=== PATIENT | female | born 1935 | race Caucasian/White ===

== ENCOUNTER 2023-04-25 14:29 | Observation (INO) | payer MEDICARE, SELFPAY ==
[2023-04-25] VITALS (11 sets, daily range): BP systolic 119–137; BP diastolic 63–88; PULSE 65–94; RESP 18–20; TEMP 37.2; O2SAT 93–97; BMI 33.8
--- NOTE | 2023-04-25 15:16 | ED_ITS ---
HPI - Abdominal Pain General Time Seen by Provider: 15:16 Date Seen: 04/25/23 Chief Complaint: Abdominal Pain Stated Complaint: Vomiting Headache Diarrhea body Pain Time Seen by Provider: 04/25/23 14:50 Source: patient and RN notes reviewed Mode of arrival: ambulatory Limitations: no limitations History of Present Illness HPI narrative: Patient is an 87-year-old female coming in accompanied by her daughter with nausea vomiting and diarrhea. She states she cannot keep anything in. Her daughter feels she started with symptoms Sunday night but patient feels it was more Sunday. She thought initially that it was maybe a tuna salad that she made, started having nausea vomiting with that. She has had ongoing nausea vomiting and has developed diarrhea. It sounds as if it is nonbloody. She does have some abdominal pain, has not noted any fevers. She states she cannot keep anything in. She has had a history of C difficile before, was severely hypokalemic reportedly with this. There is no recent travel, no known ill contacts. Related Data Patient : No Home Medications Medication Instructions Recorded Confirmed fluorouracil 5 % topical cream g topical 06/27/22 06/27/22 irbesartan 150 1 tab PO 06/27/22 06/27/22 mg-hydrochlorothiazide 12.5 mg tablet simvastatin 20 mg tablet 20 mg PO 06/27/22 06/27/22 Previous Rx's Medication Instructions Recorded glimepiride 4 mg tablet 4 mg PO BID #60 tabs 07/11/22 Allergies Allergy/AdvReac Type Severity Reaction Status Date / Time ciprofloxacin Allergy Severe torn tendon Verified 06/27/22 18:01 oxycodone Allergy Mild 10mg itches Verified 06/27/22 18:01 tetracycline Allergy Mild swollen Verified 06/27/22 18:01 feet metformin AdvReac Mild GI upset Verified 06/27/22 18:01 Review of Systems Status of ROS Reports: 6 or more systems reviewed and unremarkable except as noted in History and below [facility] Medical History (Updated 04/25/23 @ 20:15 by Dolores Blankenship MD) Atrophic vulvovaginitis ?N95.2 - Postmenopausal atrophic vaginitis (ICD-10) Tension headache ?G44.209 - Tension-type headache, unspecified, not intractable (ICD-10) Hypokalemia ?E87.6 - Hypokalemia (ICD-10) History of hypothyroidism ?Z86.39 - Personal history of other endocrine, nutritional and metabolic disease (ICD-10) History of herpes zoster ?Z86.19 - Personal history of other infectious and parasitic diseases (ICD- 10) History of Clostridium difficile colitis ?Z86.19 - Personal history of other infectious and parasitic diseases (ICD- 10) History of benign breast biopsy ?Z98.890 - Other specified postprocedural states (ICD-10) Hammertoe ?M20.40 - Other hammer toe(s) (acquired), unspecified foot (ICD-10) Surgical History (Updated 06/12/22 @ 12:40 by Artur Hollis) Status post cataract extraction ?Z98.49 - Cataract extraction status, unspecified eye (ICD-10) History of ventral hernia repair ?Z98.890 - Other specified postprocedural states (ICD-10) ?Z87.19 - Personal history of other diseases of the digestive system (ICD-10) History of total shoulder replacement ?Z96.619 - Presence of unspecified artificial shoulder joint (ICD-10) History of total hip replacement ?Z96.649 - Presence of unspecified artificial hip joint (ICD-10) History of tonsillectomy ?Z90.89 - Acquired absence of other organs (ICD-10) History of hysterectomy ?Z90.710 - Acquired absence of both cervix and uterus (ICD-10) History of bunionectomy of both great toes ?Z98.890 - Other specified postprocedural states (ICD-10) Family History Son Cerebral hemorrhage Social History (Updated 06/12/22 @ 12:42 by Artur Hollis) Narrative: health care directive on file- health care directive completed on 06/02/2020, reviewed and sent for scanning on 08/19/2020. has 4 children non-smoker Smoking Status: Never smoker Exam Const: Vital Signs, click to edit/add: Vital Signs - 24 hr 04/25/23 15:05 04/25/23 15:56 04/25/23 15:56 Pulse Rate Pulse Rate [Pulse Oximeter] 94 87 Respiratory Rate 20 20 Blood Pressure [Le ft Upper Arm] 119/68 126/63 Pulse Oximetry 95 93 94 Oxygen Delivery Me thod Room Air Room Air 04/25/23 17:46 04/25/23 19:19 04/25/23 19:30 Pulse Rate 68 65 Pulse Rate [Pulse Oximeter] 68 Respiratory Rate 20 Blood Pressure [Le ft Upper Arm] 122/73 Pulse Oximetry 97 95 95 Oxygen Delivery Me thod Room Air 04/25/23 19:45 04/25/23 20:00 Pulse Rate 68 65 Pulse Rate [Pulse Oximeter] Respiratory Rate Blood Pressure [Le ft Upper Arm] Pulse Oximetry 93 95 Oxygen Delivery Me thod Documenting provider has reviewed patient's vital signs: yes Common normals: no apparent distress, oriented x3, no limitations, healthy appearing, alert and well nourished General appearance: cooperative, comfortable, well kempt and well developed Nutritional appearance: overweight HENMT: Common normals: normocephalic, head/scalp atraumatic, hearing grossly normal bilaterally, external ears normal, external nose normal, moist oral mucous membranes and oropharynx normal Head and scalp: normocephalic and atraumatic Nose: external nose normal External ear: external ears normal Eye: Common normals: PERRL, EOMs intact bilaterally, conjunctivae normal and no scleral icterus Conjunctiva: conjunctiva(e) normal Pupil: PERRL Neck & C-Spine: Common normals: full ROM, no lymphadenopathy, supple, no meningeal signs, no JVD and thyroid normal Thyroid: thyroid normal Resp: Common normals: normal respiratory effort, no retractions, no use of accessory muscles and clear to auscultation bilaterally Auscultation: clear to auscultation bilaterally Cardio: Common normals: no JVD, regular rate, regular rhythm, S1 normal heart sound, S2 normal heart sound, no gallops, no clicks, no murmurs and no rub Rate: regular rate Rhythm: regular rhythm Heart sounds: S1 normal and S2 normal GI: Common normals: Normal to inspection, nondistended, normoactive bowel sounds present, soft to palpation, non-tender, no hepatosplenomegaly and no masses Palpation: soft and no hepatosplenomegaly Neuro: Common normals: oriented x3 Sensorium/orientation: alert Meningeal signs: no meningeal signs Psych: Appearance: well kempt Course Course Hospital Course: Patient has a history of C difficile colitis, current presentation is very concerning for potential recurrence. This also could be a gastroenteritis. Feel that we can start with labs, check stool for C difficile which is already been collected. Will initiate IV fluids, have reviewed with her that we will be checking her potassium. The nausea vomiting diarrhea certainly can cause hypokalemia which she has noted in the past with these symptoms. Will likely just start with a flat and upright to look at character of her bowels, do not feel she needs CT imaging at this time. Reevaluation(s) Time of Reevaluation #1: 18:09 Reevaluation #1: Patient is resting comfortably. Reviewed with her that I do think we should proceed with CT imaging of her abdomen. Her C reactive protein is 18, elevated white blood count. Her C difficile has come back negative. Thus, do think we need advanced imaging here. Time of Reevaluation #2: 20:12 Reevaluation #2: Have reviewed with patient and her daughter the diverticulitis diagnosis. Recommendation for hospitalization is made. Kaia did not initially want to come into the hospital but after I have reviewed the rationale and her daughter has insisted, she does agree. Consultations Consultation #1: Have reviewed with hospitalist Dr. Blankenship regarding this patient. She is requesting ertapenem in case she might transition to outpatient IV antibiotics. 1 g of this was subsequently ordered. Given her age, nausea vomiting with this, multifocal diverticulitis, will place in hospital for observation. Time: 19:49 Vital Signs Vital signs: Initial Vital Signs Temperature Source Temporal Artery Scan 04/25/23 15:05 Pulse Rate 94 04/25/23 15:05 Pulse Rhythm Regular 04/25/23 15:05 Respiratory Rate 20 04/25/23 15:05 Blood Pressure 119/68 04/25/23 15:05 Blood Pressure Mean 85 04/25/23 15:05 Blood Pressure Position Sitting 04/25/23 15:05 Pulse Oximetry 95 04/25/23 15:05 Oxygen Delivery Method Room Air 04/25/23 15:05 Vital Signs Pulse Rate 94 04/25/23 15:05 Respiratory Rate 20 04/25/23 15:05 Blood Pressure 119/68 04/25/23 15:05 Pulse Oximetry 95 04/25/23 15:05 Oxygen Delivery Method Room Air 04/25/23 15:05 Pulse Rate 65 04/25/23 20:00 Respiratory Rate 20 04/25/23 17:46 Blood Pressure 122/73 04/25/23 17:46 Pulse Oximetry 95 04/25/23 20:00 Oxygen Delivery Method Room Air 04/25/23 17:46 MDM - Abdominal Pain Differential Diagnosis Differential diagnosis: Likely abdominal pain, diverticulitis and gastroenteritis Lab Data Attestation: I reviewed the patient's lab results. Labs: Lab Results 04/25/23 Range/Units 15:50 WBC 13.63 H (4.50-11.00) K/uL RBC 4.89 (4.00-5.20) m/uL Hgb 14.8 (12.0-16.0) gm/dL Hct 43.7 (33.0-51.0) % MCV 89 (80-100) fL MCH 30 (26-34) pg MCHC 34 (32-36) gm/dL RDW Coeff of [place] 13.8 (11.5-15.5) % Plt Count 230 (140-440) K/uL Neut % (Auto) 78.1 H (42.0-72.0) % Lymph % (Auto) 12.5 L (20-44) % [place] % (Auto) 8.8 (0.0-11.0) % Eos % (Auto) 0.3 (0.0-7.0) % Baso % (Auto) 0.2 (0.0-3.0) % Neut # (Auto) 10.60 H (1.7-7.0) K/uL Lymph # (Auto) 1.70 (0.90-2.90) K/uL [place] # (Auto) 1.20 H (0.00-0.90) K/UL Eos # (Auto) 0.00 (0.00-0.50) K/uL Baso # (Auto) 0.00 (0.00-0.30) K/uL Sodium 136 (135-149) mmol/L Potassium 3.0 L (3.6-5.1) mmol/L Chloride 99 (96-114) mmol/L Carbon Dioxide 26 (20-32) mmol/L BUN 19 (7-30) mg/dL Creatinine 0.6 (0.5-1.5) mg/dL Estimated Creat Clear 31.94 Estimated GFR 87 ml/min Glucose 142 H (60-115) mg/dL Lactate 1.3 (0.5-1.9) mmol/L Calcium 8.9 (8.4-10.6) mg/dL Total Bilirubin 1.3 (0.1-1.5) mg/dL AST 22 (12-35) U/L ALT 21 (4-35) U/L Alkaline Phosphatase 59 (40-150) U/L C-Reactive Protein 18.1 H (0.5-1.0) mg/dL Total Protein 7.1 (6.0-8.3) g/dL Albumin 4.1 (3.3-5.0) g/dL Imaging Data Abdominal x-ray: Attestation: I have reviewed the pertinent imaging results. Radiologist's impression: Patient: KAIA LUGO Facility:?[facility] Patient ID:?[id number] Site Patient ID:?[id number]. Site :?[id number] Study:?XRay Abdomen 2 VIEW-04/25/2023 5:12:53 PM Ordering Physician:Karen Alston Final Report: INDICATION: Nausea, vomiting, diarrhea for 1 day. COMPARISON: None available. FINDINGS: Erect and supine films of the abdomen were obtained. In the abdomen, there is no sign of distention of the small bowel or colon to suggest obstruction or ileus. There is no sign of free air or distinct mass. The components of bilateral total hip prostheses are in anatomic alignment with no sign of fracture, loosening, or dislocation. There is no sign of fracture of the [place] osseous structures. There is mild scoliosis of the lumbar spine convex towards the left. There is prominent disc degenerative disease in the knee inferior lumbar spine. The lung bases are clear. IMPRESSION: Normal abdomen two views. Dictated by Manolo Heart MD @ 04/25/2023 6:05:50 PM (Electronic Signature) CT scan - abdomen: Attestation: I have reviewed the pertinent imaging results. Radiologist's impression: Patient: KAIA LUGO Facility:?[facility] Patient ID:?[id number] Site Patient ID:?[id number]. Site :?[id number] Study:?CT Abdomen/Pelvis W/ISOVUE 370 91CC-04/25/2023 6:34:53 PM Ordering Physician:?Darius Alston Final Report: INDICATION: n/v/d, elevated wbc, crp 18, abd pain X 1 DAY TECHNIQUE: CT abdomen and pelvis acquired with 91 cc Isovue 370 IV contrast. COMPARISON: None. FINDINGS: Lower chest: The visualized lower lungs are aerated. No pleural or pericardial effusion. ABDOMEN: Liver: Subcentimeter hypodensities are too small to characterize however statistically represent cysts. Gallbladder and biliary: Gallbladder wall calcification versus cholelithiasis in an otherwise normal gallbladder. Normal caliber bile ducts. Spleen: Normal size and enhancement. Pancreas: Normal enhancement without peripancreatic inflammatory changes or ductal dilatation. Adrenal glands: Normal adrenal glands. Kidneys and ureters: Normal enhancement. No radio-opaque calculi. No hydroureteronephrosis. Subcentimeter hypodensities are too small to characterize however statistically represent cysts. Peripelvic cysts. Early passage of contrast in the renal collecting systems. GI tract: The stomach is relatively decompressed. Normal caliber small and large bowel loops. Appendix is not definitively visualized. Colonic diverticulosis with areas of adjacent inflammatory stranding in the sigmoid as well as the descending colon. Vascular structures: Patent abdominal aorta with atherosclerotic vascular calcifications. Lymph nodes: No lymphadenopathy in the abdomen or pelvis by size criteria. Peritoneum: No free air, free fluid, or focal drainable fluid collection. PELVIS: Genitourinary system: Urinary bladder is relatively obscured by streak artifact. SKELETAL STRUCTURES AND SOFT TISSUES: Bilateral hip arthroplasties. Lumbar spondylosis. IMPRESSION: Acute multifocal uncomplicated diverticulitis involving the sigmoid and descending colon. Please note that all CT scans at this facility use dose modulation, iterative reconstruction, and/or weight-based dosing when appropriate to reduce radiation dose to as low as reasonably achievable. Dictated by Erick Vital MD @ 04/25/2023 7:38:38 PM (Electronic Signature) Discharge Plan Discharge Clinical Impression: Diverticulitis, Acute hypokalemia Patient Disposition: Admitted As Inpatient Condition: Unchanged
[2023-04-25] MEDS: 0.9 % SODIUM CHLORIDE 500 ML 500 ML IV (15:46)
[2023-04-25] MEDS: ONDANSETRON 2 MG/ML inj 4 MG IVP (15:46)
[2023-04-25 15:55] LABS: Lactate* 1.3 mmol/L (0.5-1.9)
[2023-04-25 15:59] LABS: Basophils Percent Auto 0.2 % (0.0-3.0); Eosinophils Percent Auto 0.3 % (0.0-7.0); Hematocrit 43.7 % (33.0-51.0); Hemoglobin* 14.8 gm/dL (12.0-16.0); Immature Granulocytes Pct Auto 0.1 %; Lymphocytes Percent Auto 12.5 % (20-44); Mean Corpuscular HGB Conc 34 gm/dL (32-36); Mean Corpuscular Hemoglobin 30 pg (26-34); Mean Corpuscular Volume 89 fL (80-100); Monocytes Percent Auto 8.8 % (0.0-11.0); Neutrophils Percent Auto 78.1 % (42.0-72.0); Platelet Count* 230 K/uL (140-440); RDW Coefficient of Variation % 13.8 % (11.5-15.5); Red Blood Count 4.89 m/uL (4.00-5.20); White Blood Count* 13.63 K/uL (4.50-11.00)
[2023-04-25 16:01] LABS: Slide Review Reflex No
[2023-04-25 16:16] LABS: Albumin* 4.1 g/dL (3.3-5.0); Chloride* 99 mmol/L (96-114)
[2023-04-25 16:17] LABS: Sodium* 136 mmol/L (135-149)
[2023-04-25 16:19] LABS: Bilirubin Total* 1.3 mg/dL (0.1-1.5); Creatinine* 0.6 mg/dL (0.5-1.5); Est. Creatinine Clearance* 31.94; Estimated Glomerular Filt Rate 87 ml/min
[2023-04-25 16:20] LABS: Alanine Aminotransferase* 21 U/L (4-35); Alkaline Phosphatase* 59 U/L (40-150); Aspartate Amino Transferase* 22 U/L (12-35); Blood Urea Nitrogen* 19 mg/dL (7-30); Calcium* 8.9 mg/dL (8.4-10.6); Carbon Dioxide* 26 mmol/L (20-32); Glucose* 142 mg/dL (60-115)
[2023-04-25 16:28] LABS: Total Protein* 7.1 g/dL (6.0-8.3)
[2023-04-25 16:38] LABS: C Reactive Protein* 18.1 mg/dL (0.5-1.0)
--- NOTE | 2023-04-25 16:56 | CRLHL7_ITS ---
For Patients: As a result of the Century Cures Act, medical imaging exams and procedure reports are released immediately into your electronic medical record. You may view this report before your referring provider. If you have questions, please contact your health care provider. INDICATION: Nausea, vomiting, diarrhea for 1 day. COMPARISON: None available. FINDINGS: Erect and supine films of the abdomen were obtained. In the abdomen, there is no sign of distention of the small bowel or colon to suggest obstruction or ileus. There is no sign of free air or distinct mass. The components of bilateral total hip prostheses are in anatomic alignment with no sign of fracture, loosening, or dislocation. There is no sign of fracture of the [place] osseous structures. There is mild scoliosis of the lumbar spine convex towards the left. There is prominent disc degenerative disease in the knee inferior lumbar spine. The lung bases are clear. IMPRESSION: Normal abdomen two views. Dictated by Manolo Heart MD @ 04/25/2023 6:05:50 PM (Electronically Signed)
[2023-04-25 17:25] LABS: C.Difficile Negative (Negative); CDIFFEPI 027 PRESUMPTIVE NEGATIVE (Negative)
[2023-04-25] MEDS: POTASSIUM CHLORIDE 10 MEQ, LIDOCAINE 1 % 1 ML in 0.9 % SODIUM CHLORIDE 100 ml 100 ML 106 MEQ IVPB ×2 (17:47→19:13)
--- NOTE | 2023-04-25 18:06 | CRLHL7_ITS ---
For Patients: As a result of the Century Cures Act, medical imaging exams and procedure reports are released immediately into your electronic medical record. You may view this report before your referring provider. If you have questions, please contact your health care provider. INDICATION: n/v/d, elevated wbc, crp 18, abd pain X 1 DAY TECHNIQUE: CT abdomen and pelvis acquired with 91 cc Isovue 370 IV contrast. COMPARISON: None. FINDINGS: Lower chest: The visualized lower lungs are aerated. No pleural or pericardial effusion. ABDOMEN: Liver: Subcentimeter hypodensities are too small to characterize however statistically represent cysts. Gallbladder and biliary: Gallbladder wall calcification versus cholelithiasis in an otherwise normal gallbladder. Normal caliber bile ducts. Spleen: Normal size and enhancement. Pancreas: Normal enhancement without peripancreatic inflammatory changes or ductal dilatation. Adrenal glands: Normal adrenal glands. Kidneys and ureters: Normal enhancement. No radio-opaque calculi. No hydroureteronephrosis. Subcentimeter hypodensities are too small to characterize however statistically represent cysts. Peripelvic cysts. Early passage of contrast in the renal collecting systems. GI tract: The stomach is relatively decompressed. Normal caliber small and large bowel loops. Appendix is not definitively visualized. Colonic diverticulosis with areas of adjacent inflammatory stranding in the sigmoid as well as the descending colon. Vascular structures: Patent abdominal aorta with atherosclerotic vascular calcifications. Lymph nodes: No lymphadenopathy in the abdomen or pelvis by size criteria. Peritoneum: No free air, free fluid, or focal drainable fluid collection. PELVIS: Genitourinary system: Urinary bladder is relatively obscured by streak artifact. SKELETAL STRUCTURES AND SOFT TISSUES: Bilateral hip arthroplasties. Lumbar spondylosis. IMPRESSION: Acute multifocal uncomplicated diverticulitis involving the sigmoid and descending colon. Please note that all CT scans at this facility use dose modulation, iterative reconstruction, and/or weight-based dosing when appropriate to reduce radiation dose to as low as reasonably achievable. Dictated by Erick Vital MD @ 04/25/2023 7:38:38 PM (Electronically Signed)
--- NOTE | 2023-04-25 20:13 | PM.IMHP1 ---
Hospitalist- H&P: HPI History of Present Illness Date Seen: 04/25/23 Chief complaint: Vomiting Headache Diarrhea body Pain Narrative: ADMISSION HISTORY AND PHYSICAL - HOSPITALIST Chief Complaint: Vomiting, diarrhea, abdominal pain feels weak HPI: 87-year-old Kaia with a history of hypertension, hyperlipidemia and diabetes presents with acute onset of vomiting, poor p.o. intake, mild to moderate abdominal pain and diarrhea. She has a history of C diff. she felt dehydrated. Asked for her daughter whom she lives with did bring her in for evaluation. No fever. No back pain. No recent travel. No other sick contacts in the home. ER COURSE: Labs showed a mild elevation in her white blood cell count, low potassium. C diff negative. CT abdomen pelvis show some uncomplicated diverticulitis. Given her advanced age and poor p.o. intake we felt it prudent to admit her. CODE STATUS: Full code EMERGENCY CONTACT PLAN: DaughterAilyn, I've updated the PFSH, medications and allergies in the [facility] tabs. INVESTIGATIONS: LABS/MICRO/ECG/IMAGING 122/73. Pulse 68. Respiration 20. O2 sat 95% on room air. 83 kilos, BMI 34 CBC reflects a white blood cell count at 13.6, 78% neutrophils. Hemoglobin 14. Platelets 230. Potassium 3.0 other electrolytes are normal. Normal renal function. Glucose 142. A1c pending. Lactate normal Normal LFTs C reactive protein 18.[address] abdomen pelvis Acute multifocal uncomplicated diverticulitis involving the sigmoid and descending colon. REVIEW OF SYSTEMS: 12-point ROS completed with patient and negative unless otherwise stated in HPI or below. PHYSICAL EXAM: CONSTITUTIONAL: Conversive, good historian. A/O. Knows setting and context. Does not seem to be in any distress. Laughing and making conversation unrelated to her admission. VITAL SIGNS: see record. HEENT: Normocephalic, atraumatic. PERRL, EOMI, conjunctivae pink, no scleral icterus. Ears and nose externally normal. Pharynx normal. NECK: No JVD. No carotid bruit, no thyromegaly, no adenopathy. CHEST: Clear to auscultation bilaterally HEART: S1 and S2 normal. No harsh murmurs. Edema minimal ABDOMEN: Soft. Obese. Only tender but but certainly no peritoneal or acute rebound findings. MUSCULOSKELETAL: No gross joint deformity or swelling. NEURO: Cranial nerves intact. Grossly intact. No asymmetric findings. SKIN: No rashes, petechiae, concerning changes PSYCHIATRIC: Euthymic. ADMIT TO MEDSURG: FLOOR CARE DVT: Lovenox GI: Ppi, clears Time spent: 70 minutes examining patient, conferring with family and patient, care staff, developing care plan [facility] Medical History (Updated 04/25/23 @ 21:10 by Dolores Blankenship MD) Atrophic vulvovaginitis ?N95.2 - Postmenopausal atrophic vaginitis (ICD-10) Tension headache ?G44.209 - Tension-type headache, unspecified, not intractable (ICD-10) Hypokalemia ?E87.6 - Hypokalemia (ICD-10) History of hypothyroidism ?Z86.39 - Personal history of other endocrine, nutritional and metabolic disease (ICD-10) History of herpes zoster ?Z86.19 - Personal history of other infectious and parasitic diseases (ICD-10) History of Clostridium difficile colitis ?Z86.19 - Personal history of other infectious and parasitic diseases (ICD-10) History of benign breast biopsy ?Z98.890 - Other specified postprocedural states (ICD-10) Hammertoe ?M20.40 - Other hammer toe(s) (acquired), unspecified foot (ICD-10) Surgical History (Updated 04/25/23 @ 21:11 by Dolores Blankenship MD) History of eyelid surgery ?Z98.890 - Other specified postprocedural states (ICD-10) H/O breast biopsy ?Z98.890 - Other specified postprocedural states (ICD-10) Status post cataract extraction ?Z98.49 - Cataract extraction status, unspecified eye (ICD-10) History of ventral hernia repair ?Z98.890 - Other specified postprocedural states (ICD-10) ?Z87.19 - Personal history of other diseases of the digestive system (ICD-10) History of total shoulder replacement ?Z96.619 - Presence of unspecified artificial shoulder joint (ICD-10) History of total hip replacement ?Z96.649 - Presence of unspecified artificial hip joint (ICD-10) History of tonsillectomy ?Z90.89 - Acquired absence of other organs (ICD-10) History of hysterectomy ?Z90.710 - Acquired absence of both cervix and uterus (ICD-10) History of bunionectomy of both great toes ?Z98.890 - Other specified postprocedural states (ICD-10) Family History Son Cerebral hemorrhage Social History (Updated 04/25/23 @ 21:12 by Dolores Blankenship MD) Narrative: Lives with her daughter, Ailyn, and her son who has had a stroke 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, 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 Nonsmoker No alcohol Has 4 children total -health care directive on file- Smoking Status: Never smoker Meds Home Medications and Allergies Home Medications Medication Instructions Recorded Confirmed Type fluorouracil 5 % topical cream 1 applic topical 06/27/22 06/27/22 History irbesartan 150 2 tab PO DAILY 06/27/22 04/25/23 History mg-hydrochlorothiazide 12.5 mg tablet simvastatin 20 mg tablet 20 mg PO HS 06/27/22 04/25/23 History aspirin 81 mg tablet,delayed 81 mg PO DAILY 04/25/23 04/25/23 History release calcium carbonate 600 mg-vitamin 1 tab PO DAILY 04/25/23 04/25/23 History D3 20 mcg (800 unit) tablet Allergies Allergy/AdvReac Type Severity Reaction Status Date / Time ciprofloxacin Allergy Severe torn tendon Verified 06/27/22 18:01 oxycodone Allergy Mild 10mg itches Verified 06/27/22 18:01 tetracycline Allergy Mild swollen Verified 06/27/22 18:01 feet metformin AdvReac Mild GI upset Verified 06/27/22 18:01 Exam Const: Vital Signs, click to edit/add: Vital Signs - 24 hr 04/25/23 15:05 04/25/23 15:56 04/25/23 15:56 Pulse Rate Pulse Rate [Pulse Oximeter] 94 87 Respiratory Rate 20 20 Blood Pressure [Le ft Upper Arm] 119/68 126/63 Pulse Oximetry 95 93 94 Oxygen Delivery Me thod Room Air Room Air 04/25/23 17:46 04/25/23 19:19 04/25/23 19:30 Pulse Rate 68 65 Pulse Rate [Pulse Oximeter] 68 Respiratory Rate 20 Blood Pressure [Le ft Upper Arm] 122/73 Pulse Oximetry 97 95 95 Oxygen Delivery Me thod Room Air 04/25/23 19:45 04/25/23 20:00 Pulse Rate 68 65 Pulse Rate [Pulse Oximeter] Respiratory Rate Blood Pressure [Le ft Upper Arm] Pulse Oximetry 93 95 Oxygen Delivery Me thod Hospitalist - H&P: Result Labs Labs: Short CBC 04/25/23 Range/Units 15:50 WBC 13.63 H (4.50-11.00) K/uL Hgb 14.8 (12.0-16.0) gm/dL Hct 43.7 (33.0-51.0) % Plt Count 230 (140-440) K/uL BMP 04/25/23 15:50 Sodium 136 Potassium 3.0 L Chloride 99 Carbon Dioxide 26 BUN 19 Creatinine 0.6 Glucose 142 H Calcium 8.9 Liver Function 04/25/23 Range/Units 15:50 Total Bilirubin 1.3 (0.1-1.5) mg/dL AST 22 (12-35) U/L ALT 21 (4-35) U/L Alkaline Phosphatase 59 (40-150) U/L Albumin 4.1 (3.3-5.0) g/dL Assessment and Plan Assessment and plan (1) Diverticulitis: Problem comment: Ertapenem 1 g IV Q 24 Likely will switch to oral since discharge tomorrow. Status: Acute (2) Acute hypokalemia: Problem comment: 3.0. We will run two 10 mEq bags over the next couple of hours IV fluids with potassium Trend Consider that she is on irbesartan and hydrochlorothiazide, 25 mg daily. Have this on hold but may be this should be considered at discharge. However the hypokalemia may resolve as she has had acute diarrhea and vomiting. Status: Acute (3) Morbid obesity: Status: Acute (4) Irritable bowel syndrome: Problem comment: History of C diff. Status: Acute (5) Hyperlipidemia: Status: Acute (6) Essential hypertension: Status: Acute (7) COPD (chronic obstructive pulmonary disease): Status: Acute (8) Diabetes mellitus, type II: Status: Acute (9) Cognitive decline: Problem comment: Early. No significant deficits. Status: Acute
--- NOTE | 2023-04-25 20:16 | ED.NURSE ---
Report given to Med/Surg Nurse. Pt transporting with all belongings at this time. Pt family is with her as well . Pt does not want a warm blanket for transport and will not take her pants and underwear off for this nurse.
[2023-04-25] MEDS: ERTAPENEM 1 GM in 0.9 % SODIUM CHLORIDE Mini-bag 100 ML IVPB (21:11)
[2023-04-25] MEDS: 0.9 % SODIUM CH + KCL 20 mEq/L 1,000 ML 75 ML IV (21:11)
[2023-04-25 21:38] LABS: Hemoglobin A1C* 7.27 % (0-5.6)
[2023-04-25 21:52] LABS: Procalcitonin* 0.11 ng/mL (<0.50)
[2023-04-25] MEDS: ENOXAPARIN 40 MG/0.4 ML INJ SUBCUT (22:15)
[2023-04-25] MEDS: PANTOPRAZOLE SODIUM 40 MG INJ IVP (22:17)
[2023-04-25] MEDS: SODIUM CHLORIDE 0.9 % (FLUSH) 10 ML SYRINGE 5 ML IVF (22:17)
[2023-04-26 06:32] LABS: HCO3 VBG 28 mmol/L (21-28); PCO2 VBG 43 mmHG (40-50); PO2 VBG 74.8 mmHG (25-47); pH VBG 7.427 (7.32-7.43)
[2023-04-26 06:35] LABS: Basophils Absolute Auto 0.03 K/uL (0.00-0.30); Basophils Percent Auto 0.3 % (0.0-3.0); Eosinophils Absolute Auto 0.08 K/uL (0.00-0.50); Eosinophils Percent Auto 0.9 % (0.0-7.0); Hematocrit 39.9 % (33.0-51.0); Hemoglobin* 13.3 gm/dL (12.0-16.0); Immature Granulocytes Abs Auto 0.01 K/uL (0.00-0.30); Immature Granulocytes Pct Auto 0.1 %; Lymphocytes Percent Auto 19.5 % (20-44); Mean Corpuscular HGB Conc 33 gm/dL (32-36); Mean Corpuscular Hemoglobin 30 pg (26-34); Mean Corpuscular Volume 91 fL (80-100); Monocytes Percent Auto 10.3 % (0.0-11.0); Neutrophils Percent Auto 68.9 % (42.0-72.0); Platelet Count* 143 K/uL (140-440); RDW Coefficient of Variation % 13.9 % (11.5-15.5); White Blood Count* 9.01 K/uL (4.50-11.00)
[2023-04-26 06:36] LABS: Slide Review Reflex No
[2023-04-26 06:47] LABS: Chloride* 104 mmol/L (96-114); Sodium* 137 mmol/L (135-149)
[2023-04-26 06:48] LABS: Potassium* 3.5 mmol/L (3.6-5.1)
[2023-04-26 06:50] LABS: Creatinine* 0.5 mg/dL (0.5-1.5); Est. Creatinine Clearance* 31.94; Estimated Glomerular Filt Rate 91 ml/min; Lipase* 125 U/L (23-300)
[2023-04-26 06:51] LABS: Blood Urea Nitrogen* 16 mg/dL (7-30); Calcium* 8.1 mg/dL (8.4-10.6); Carbon Dioxide* 27 mmol/L (20-32); Glucose* 112 mg/dL (60-115)
[2023-04-26 07:00] VITALS: PULSE 78; RESP 18; O2SAT 94
[2023-04-26 07:01] VITALS: BP 119/77; PULSE 78; RESP 18; TEMP 36.9; O2SAT 94
[2023-04-26 07:05] LABS: C Reactive Protein* 15.1 mg/dL (0.5-1.0)
--- NOTE | 2023-04-26 07:25 | PC.NURSE ---
Shift Summary? [address]? Diverticulitis and Hypokalemia? Hx: Tension headaches, Chronic diarrhea, Hypokalemia, DM2,?hypothyroidism, herpes zoster, C. diff (Negative)? Pt admitted to floor around 2029. Pleasant and talkative. Denies abdominal pain but did have mild headache- declined available PRNS ?I usually just take aspirin?. Given 20meq of K in ED. On 75ml/hr KCl to LAC. Reports diarrhea but did not have BM this shift. On room air sating well. Vitals WDL. Oriented x4. Lives with adult children, 8 cats, and a dog. Walked to SBA/independent d/t IV pole x2. Small loose BM. No nausea/vomiting. Can advance diet as tolerated, has eaten sherbert and tolerating intake. Given IV abx. Usually takes ?two blood pressure meds ?in the morning but reports not having had them d/t nausea for two days. Lovenox, SDCs, pt declining to wear?socks. Does not want BP?s done on R arm d/t aching/pain. Ahtanum band applied. K 3.5 this morning.?
[2023-04-26 08:56] VITALS: PULSE 73
[2023-04-26] MEDS: hydroCHLOROthiazide 12.5 MG CAPSULE PO (09:08)
[2023-04-26] MEDS: IRBESARTAN 150 MG TABLET PO (09:08)
--- NOTE | 2023-04-26 09:09 | REH.PT ---
PT Eval & Treat Orders received, chart reviewed. Pt seen this am. Reports that she is mobilizing independently in room while self managing IV pole. Ind community amb at baseline. Demo's ind transfers, gait and stair amb. Skilled Pt not warranted at this time. Safe to d/c back to home living environment. D/C PT eval & treat orders.
[2023-04-26 09:49] VITALS: BMI 35.4
--- NOTE | 2023-04-26 10:26 | REH.OT ---
OT order received for evaluate and treat, chart reviewed. Patient reports ind with all ADLs and IADLs at baseline, lives in single family home with 2 kids. She reports no concerns with medication management, community mobility, or home maintenance. Darcyo'd functional amb in room and reports being ind with management of IV pole. Skilled OT is not needed at this time, d/c OT eval and treat orders.
[2023-04-26 11:00] VITALS: BP 132/65; PULSE 84; RESP 16; TEMP 37.1; O2SAT 90
[2023-04-26] MEDS: 0.9 % SODIUM CH + KCL 20 mEq/L 1,000 ML 75 ML IV (11:49)
[2023-04-26 13:25] VITALS: BP 137/88; PULSE 73; RESP 16; TEMP 37.1
--- NOTE | 2023-04-26 17:05 | PC.NURSE ---
Discharge: Patient pleasant and cooperative. Patient vitally stable, lungs clear, BS WNL, IV removed, catheter intact. Patient independent in room. Patient denies pain. Patient urinating and tolerating regular diet. Morning blood sugar 127. Patient signed belongings sheet and discharge form. Patient had no further questions regarding discharge. Patient left the floor by wheelchair to home at 1552.
--- NOTE | 2023-04-27 15:32 | PM.DS1 ---
DS: Providers Provider Time Seen by Provider: 09:00 Date Seen: 04/26/23 Date of admission: 04/25/23 20:13 Primary care physician: Kylah Gamble APRN, DEPARTMENT OF SOCIOLOGY CHAIR Admitting Clinician: Dolores Blankenship MD Consults: 04/25/23 21:01 Consult to Occupational Therapy [CONS] Routine Comment: Reason(s) for OT Consult:: Evaluate and Treat Any Restrictions?:: No Restrictions Consult to Physical Therapy [CONS] Routine Comment: Reason(s) for PT Consult:: Evaluate and Treat Any Restrictions?:: No Restrictions Consult to Product Development Ecologist [CONS] Routine Comment: Reason for Consult:: Social Service Consult Attending Physician on discharge: Vimal Person MD Date of Discharge: 04/26/23 DS: Diagnosis Discharge Diagnosis (1) Diverticulitis: Status: Acute Problem details: Ertapenem 1 g IV Q 24 Likely will switch to oral since discharge tomorrow. (2) Acute hypokalemia: Status: Acute Problem details: 3.0. We will run two 10 mEq bags over the next couple of hours IV fluids with potassium Trend Consider that she is on irbesartan and hydrochlorothiazide, 25 mg daily. Have this on hold but may be this should be considered at discharge. However the hypokalemia may resolve as she has had acute diarrhea and vomiting. (3) Cognitive decline: Status: Acute Problem details: Early. No significant deficits. (4) COPD (chronic obstructive pulmonary disease): Status: Acute (5) Diabetes mellitus, type II: Status: Acute (6) Essential hypertension: Status: Acute (7) Hyperlipidemia: Status: Acute (8) Irritable bowel syndrome: Status: Acute Problem details: History of C diff. (9) Morbid obesity: Status: Acute DS: Summary Hospital Course Hospital Course: Per history of present illness: 87-year-old Kaia with a history of hypertension, hyperlipidemia and diabetes presents with acute onset of vomiting, poor p.o. intake, mild to moderate abdominal pain and diarrhea.? She has a history of C diff. she felt dehydrated.? Asked for her daughter whom she lives with did bring her in for evaluation.? No fever.? No back pain.? No recent travel.? No other sick contacts in the home. ER COURSE: Labs showed a mild elevation in her white blood cell count, low potassium.? C diff negative.? CT abdomen pelvis show some uncomplicated diverticulitis.? Given her advanced age and poor p.o. intake we felt it prudent to admit her. Received a single dose of IV ertapenem. Received IV antibiotics. Symptoms improved substantially. Discharge on oral antibiotics and with follow-up as specified. Status at Discharge Functional status at discharge: independent ambulation Overall status at discharge: patient is progressing back to baseline Time Spent with Patient Time attestation: Total time spent providing and/or coordinating discharge services: Time spent: Greater than 30 minutes Exam Narrative: Exam Narrative: CHEST:? Clear to auscultation bilaterally HEART: S1 and S2 normal.? No harsh murmurs. Edema minimal ABDOMEN:? Soft.? Obese.? Only tender but but certainly no peritoneal or acute rebound findings. MUSCULOSKELETAL: No gross joint deformity or swelling. NEURO: Cranial nerves intact.? Grossly intact.? No asymmetric findings. SKIN:? No rashes, petechiae, concerning changes PSYCHIATRIC: Euthymic. Const: Vital Signs, click to edit/add: Remains afebrile with stable vital signs. Discharge Plan Discharge Disposition: Home, Self-Care Date of Admission: 04/25/23 20:13 Attending Provider on Discharge: Vimal Person Primary Care Provider: Kylah Gamble Condition: Improved Anticipated Discharge Date/Time: 04/26/23 13:30 Discharge Medications: New amoxicillin-pot clavulanate 875-125 mg tablet 1 tab PO BID Qty: 20 0RF Continued irbesartan-hydrochlorothiazide 150-12.5 mg tablet 2 tab PO DAILY simvastatin 20 mg tablet 20 mg PO HS Patient Comments: TAKE ONE TABLET BY MOUTH AT BEDTIME fluorouracil 5 % cream 1 applic topical BID Hold Instructions: Doctor's Order Patient Comments: APPLY TO AFFECTED AREA(S) TWO TIMES A DAY FOR 4 WEEKS. aspirin 81 mg tablet,delayed release (DR/EC) 81 mg PO DAILY calcium carbonate-vitamin D3 600 mg-20 mcg (800 unit) tablet 1 tab PO DAILY glimepiride 4 mg tablet 4 mg PO BID Qty: 60 11RF Discharge Orders: Discharge Order (Routine); Ordered 04/26/23 Ordered By: Vimal Person Patient Education: Amoxicillin/Clavulanate Potassium (By mouth), Diverticulitis (DC) Activity Level: No Restrictions and Activity as Tolerated Discharge Diet: High Fiber and Low Fiber Diet Detail: Low fiber for next 1-2 weeks, then gradually increase to high fiber with adequate hydration over 1-2 months Follow Up Appointments: Kylah Gamble APRN, [facility] [Primary Care Provider] - 05/07/23 1:15 pm ([facility] in [place], with follow-up appointment.) Forms: [employer] Info Instructions
== END 2023-04-26 15:52 | disposition home or self-care (01) ==
LOC: ED 19:53 → MEDSURG 20:14
PROVIDERS: Admitting Provider Family Medicine; Emergency Provider Family Medicine; PCP Nurse Practitioner Family; Visit Provider Family Medicine
DX: K57.32 Diverticulitis of large intestine without perforation or abscess without bleeding (principal); E87.6 Hypokalemia; D72.829 Elevated white blood cell count, unspecified; E66.01 Morbid (severe) obesity due to excess calories; Z68.35 Body mass index [BMI] 35.0-35.9, adult; K58.9 Irritable bowel syndrome, unspecified; E78.5 Hyperlipidemia, unspecified; I10 Essential (primary) hypertension; J44.9 Chronic obstructive pulmonary disease, unspecified; E11.9 Type 2 diabetes mellitus without complications; R41.89 Other symptoms and signs involving cognitive functions and awareness; R11.10 Vomiting, unspecified; R11.0 Nausea; R19.7 Diarrhea, unspecified; R10.9 Unspecified abdominal pain; Z79.82 Long term (current) use of aspirin; Z79.84 Long term (current) use of oral hypoglycemic drugs; Z87.19 Personal history of other diseases of the digestive system; Z86.39 Personal history of other endocrine, nutritional and metabolic disease; Z86.19 Personal history of other infectious and parasitic diseases; Z98.890 Other specified postprocedural states; Z98.49 Cataract extraction status, unspecified eye; Z96.619 Presence of unspecified artificial shoulder joint; Z96.649 Presence of unspecified artificial hip joint; Z90.89 Acquired absence of other organs; Z90.710 Acquired absence of both cervix and uterus
CPT/HCPCS: 36415; 74019; 74177; 80048; 80053; 82803; 82962; 83036; 83605; 83690; 83735; 84145; 85025; 86140; 87493; 94761; 96361; 96365; 96366; 96367; 96368; 96372; 96375; 99284; 99285; G0378; A9270; C9113; J1335; J1650; J2405; J3480; J7120; Q9967

== ENCOUNTER 2023-05-07 15:57 | Outpatient (CLI) | payer MEDICARE, SELFPAY | END 2023-05-07 15:58 | disposition home or self-care (01) | LOC: KYNREF 15:58 | PROVIDERS: PCP Nurse Practitioner Family; Visit Provider Nurse Practitioner Family | DX: I10 Essential (primary) hypertension (principal); E87.6 Hypokalemia; E66.01 Morbid (severe) obesity due to excess calories; E78.5 Hyperlipidemia, unspecified | CPT/HCPCS: 80048 ==

== ENCOUNTER 2023-06-05 16:04 | Outpatient (CLI) | payer MEDICARE, SELFPAY | END 2023-06-05 16:05 | disposition home or self-care (01) | PROVIDERS: PCP Nurse Practitioner Family; Visit Provider Nurse Practitioner Family | DX: E87.6 Hypokalemia (principal); E66.01 Morbid (severe) obesity due to excess calories; I10 Essential (primary) hypertension; E78.5 Hyperlipidemia, unspecified; E11.9 Type 2 diabetes mellitus without complications | CPT/HCPCS: 80053; 80061; 82043; 82570; 84443 ==

== ENCOUNTER 2023-06-07 13:00 | Outpatient (CLI) | payer MEDICARE, SELFPAY | END 2023-06-07 13:01 | disposition home or self-care (01) | LOC: NFLDREF 06-08 14:56 | PROVIDERS: PCP Nurse Practitioner Family; Referring Provider Nurse Practitioner Family; Visit Provider Nurse Practitioner Family | DX: E11.9 Type 2 diabetes mellitus without complications (principal) | CPT/HCPCS: 82043; 82570 ==

== ENCOUNTER 2023-06-15 13:53 | Outpatient (CLI) | payer MEDICARE, SELFPAY | END 2023-06-15 13:54 | disposition home or self-care (01) | PROVIDERS: PCP Nurse Practitioner Family; Visit Provider Nurse Practitioner Family | DX: E87.6 Hypokalemia (principal); L98.9 Disorder of the skin and subcutaneous tissue, unspecified; E11.9 Type 2 diabetes mellitus without complications; E66.01 Morbid (severe) obesity due to excess calories; I10 Essential (primary) hypertension; E78.5 Hyperlipidemia, unspecified | CPT/HCPCS: 84132 ==

== ENCOUNTER 2024-02-12 13:53 | Outpatient (CLI) | payer MEDICARE, SELFPAY | END 2024-02-12 13:54 | disposition home or self-care (01) | PROVIDERS: PCP Nurse Practitioner Family; Visit Provider Nurse Practitioner Family | DX: Z01.818 Encounter for other preprocedural examination (principal) | CPT/HCPCS: 80053; 85025 ==

== ENCOUNTER 2024-02-18 13:43 | Outpatient (CLI) | payer MEDICARE, SELFPAY | END 2024-02-18 13:44 | disposition home or self-care (01) | PROVIDERS: PCP Nurse Practitioner Family; Visit Provider Nurse Practitioner Family | DX: R94.31 Abnormal electrocardiogram [ECG] [EKG] (principal) | CPT/HCPCS: 93306 ==

== ENCOUNTER 2024-07-25 12:45 | Outpatient (CLI) | payer MEDICARE, SELFPAY ==
--- OUTSIDE RECORDS SUMMARY | 2024-08-02 23:50 | XMS_ITS | Encounter Summary ---
Author Organization [facility] Address [address] [place] [id number] Care Team Providers Care Bingo Checker Name Role Phone None Reported, Pcp Primary Care Provider Unavail able Reason for Visit * Reason Comments Med Refill Encounter Details Date Type Department Care Team (Late st Contact Info) Description 06/22/2024 Refill Department of Orthopedic Surgery in [address] [phone] Michael Díaz M.D. [address] [place] [phone] Med Refill Social History Tobacco Use Types Packs/Day Years Used Date Smoking Tobacco: Never Smokeless Tobacco: Never [facility] Utilities Answer Date Recorded In the past 12 months has [facility] [employer], gas, oil, or water [employer] threatened to shut off services in your home? No 02/27/2024 Humiliation, Afraid, Rape, and Kick questionnair e Answer Date Recorded Within the last year, have y ou been afraid of your partner or ex-partner? No 02/27/2024 Within the last year, have y ou been humiliated or emotionally abused in other ways by your partner or ex-partner? No Within the last year, have y ou been kicked, hit, slapped, or otherwise physically hurt by your partner or ex-partner? No 02/27/2024 Within the last year, have y ou been raped or forced to have any kind of sexual activity by your partner or ex-partner? No 02/27/2024 Exercise Vital Sign Answer Date Recorde d On average, how many days pe r week do you engage in moderate to strenuous exercise (like a brisk walk)? 7 days 02/13/2024 On average, how many minutes do you engage in exercise at this level? 40 min 02/13/2024 Hunger Vital Sign Answer Date Recorded Within the past 12 months, y ou worried that your food would run out before you got the money to buy more. Never true 02/27/20 Within the past 12 months, t he food you bought just didn't last and you didn't have money to get more. Never true 02/27/2024 PRAPARE - Transportation Answer Date Re corded In the past 12 months, has l ack of transportation kept you from medical appointments or from getting medications? No 02/17 In the past 12 months, has l ack of transportation kept you from meetings, work, or from getting things needed for daily living? No 02/27/2024 Nutrition Answer Date Recorded On average, how many serving s of fruits and vegetables do you eat per day (serving size is equal to 1 cup or approximately the size of a tennis ball)? 0-2 02/13/2024 Dental Answer Date Recorded Dental: Regular Dentist Yes 02/13/20 Employment Answer Date Recorded Employment status Retired 02/13/2024 Housing Stability Answer Date Recorded What is your living situation today? I have a [facility] place to live 02/27/2024 Sex and Gender Information Value Date Recorded Sex Assigned at Female 02/17/2024 7:52 PM CDT Gender Identity Female 02/17/2024 7:52 PM CDT Sexual Orientation Straight 02/17/2024 7: 52 PM CDT documented as of this encounter Plan of Treatment Scheduled Procedures Name Priority Associated Diagnoses Date/Ti me ARTHROSCOPY ELBOW Pain Elbow Right documented as of this encounter Visit Diagnoses Not on filedocumented in this encounter Care Teams Bingo Checker Relationship Specialty Start Date End Date None Reported, Pcp PCP - General Family Medicine 02/27/24 documented as of this encounter
--- OUTSIDE RECORDS SUMMARY | 2024-08-02 23:50 | XMS_ITS | Encounter Summary ---
Author Organization [facility] Address [address] [place] [address] Care Team Providers Care Mini Baccarat Dealer Name Role Phone None Reported, Pcp Primary Care Provider Unavail able Reason for Visit * Reason Comments Med Refill Encounter Details Date Type Department Care Team (Late st Contact Info) Description 05/30/2024 Refill Department of Orthopedic Surgery in [address] [phone] Michael Díaz M.D. [address] [place] [phone] Med Refill Social History Tobacco Use Types Packs/Day Years Used Date Smoking Tobacco: Never Smokeless Tobacco: Never [facility] Utilities Answer Date Recorded In the past 12 months has [facility] [employer] gas, oil, or water [employer] threatened to shut off services in your [...] your living situation today? I have a [facility] place to live 02/27/2024 Sex and [...] on filedocumented in this encounter Care Teams Mini Baccarat Dealer Relationship Specialty Start Date End Date None Reported, Pcp PCP - General Family Medicine 02/27/24 documented as of this encounter
--- OUTSIDE RECORDS SUMMARY | 2024-08-02 23:50 | XMS_ITS | Encounter Summary ---
Author Organization [facility] Address [address] [place] [address] Care Team Providers Care Police Communications Operator Name Role Phone None Reported, Pcp Primary Care Provider Unavail able Reason for Visit * Physical Therapy (Routine) - Canceled Specialty Diagnoses / Procedures Referred By Contac t Referred To Contact Diagnoses Primary Osteoarthritis Knee Right Procedures PT Ongoing treatment Michael Díaz M.D. [address] [place] [address] [facility] Region Referral ID Status Reason Start Date Expiration Date V isits Requested Visits Authorized [id number] Canceled 03/03/2024 03/03/2025 99 99 Encounter Details Date Type Department Care Team (Latest Contact Info) Description 04/24/2024 3:00 PM CDT Clinical Support Department of Physical Medicine and Rehabilitation in [address] [place] [phone] Michael Díaz M.D. [address] [place] [address] Lisa Quinn PCheyanne [address] [place] [address] Primary Osteoarthritis Knee Right Social History Tobacco Use Types Packs/Day Years Used Date Smoking Tobacco: Never Smokeless Tobacco: Never [facility] Utilities Answer Date Recorded In the past 12 months has th e [employer], gas, oil, or water [employer] threatened to shut off services in your [...] your living situation today? I have a [facility] place to live 02/27/2024 Sex and Gender Information Value Date Recorded Sex Assigned at Female 02/17/2024 7:52 PM CDT Gender Identity Female 02/17/2024 7:52 PM CDT Sexual Orientation Straight 02/17/2024 7: 52 PM CDT documented as of this encounter Progress Notes * Lisa Quinn P.T. - 04/24/2024 3:00 PM CDT Physical Therapy Outpatient Treatment Note SUBJECTIVE Patient's Name: Kaia Estrella Referring Provider: Michael Díaz M.D. Visit Diagnosis: 1. Primary Osteoarthritis Knee Right Payor: [employer] / Plan: [employer] HMO / Product Type: HMO / PT Next Certification Date: 06/01/24 [facility] Visit Count: 6 Patient comments: Patient states she is returning for therapy as she had a follow-up with Dr. Díaz and he wants her to be at 110 degrees the next time he sees her or will do a manipulation of her knee. Patient states that provider felt a couple more times of coming to therapy would help her to get there. Patient reports good compliance with HEP. OBJECTIVE Pain: 0/10 currently Observation/Inspection: appears to be in no apparent distress; incision healing; no signs of infection Not wearing spandogrip; continues to have edema in L knee and lower leg Mobility/Transfers: independent with all transfers and bed mobility Gait/Stairs: use of no AD with nonantalgic gait Range of Motion: AROM R knee 0-108 degrees; AA R knee flexion 113 degrees post treatment Strength: able to perform independent SLR Ortho Exam Ortho Exam TREATMENT Treatment today consisted of: Therapeutic Exercise: Therapeutic Exercise: Performed with the intent to improve strength and endurance, range of motion, flexibility, joint mobility, joint stability, and/or reduce edema/lymphedema.Therapist is present, providing one-on-one verbal and tactile cues for correct completion of exercises, facilitation of appropriate muscle activation/ recruitment and patient safety. 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 Impairments: edema, impaired ROM, impaired strength, impaired joint mobility, impaired balance Functional deficits: transfers, walking including stairs, daily activities, dressing/grooming Patient demonstrates improved L knee flexion post treatment. Functional Goals and Timeframes: PT Goal #1: Patient will be independent with home exercise program in 8 weeks. PT Goal #1 Date: 05/02/24 PT Goal #1 Status: Achieved PT Goal #2: Patient will be independent with all transfers without increased pain or limitation in 2 weeks. PT Goal #2 Date: 03/17/24 PT Goal #2 Status: Achieved PT Goal #3: Patient will be able to ambulate community distances with least restrictive assistive device without increased pain or limitation in 8 weeks. PT Goal #3 Date: 05/02/24 PT Goal #3 Status: Achieved PT Goal #4: Patient will be able to perform daily activities without increased pain or limitation in 8 weeks. PT Goal #4 Date: 05/02/24 PT Goal #4 Status: Achieved Plan Will follow-up with patient next week to continue to work on knee ROM. Treatment Plan: Plan: Plan of care initiated Start of Plan of Care: 03/03/2024 PT Next Certification Date: 06/01/24 Number of Visits:12 visits PT Duration: 60 days Treatment interventions may include: Treatment/Interventions: Therapeutic exercise, Neuromuscular re-education, Manual therapy, Gait training, Self-care/home management Time Spent with Patient Therapeutic Interventions Therapeutic Exercise (min): 23 min Time Tracking Total Timed Units (min): 23 min Total Treatment Time (min): 23 min documented in this encounter Plan of Treatment Scheduled Procedures Name Priority Associated Diagnoses Date/Ti me ARTHROSCOPY ELBOW Pain Elbow Right documented as of this encounter Visit Diagnoses Diagnosis Primary Osteoarthritis Knee Right documented in this encounter Care Teams Police Communications Operator Relationship Specialty Start Date End Date None Reported, Pcp PCP - General Family Medicine 02/27/24 documented as of this encounter
--- OUTSIDE RECORDS SUMMARY | 2024-08-02 23:50 | XMS_ITS | Encounter Summary ---
Author Organization [facility] Address [address] [place] [address] Care Team Providers Care Program Director Air Talent Name Role Phone None Reported, Pcp Primary Care Provider Unavail able Reason for Referral * Outpatient (Routine) - Authorized Specialty Diagnoses / Procedures Referred By Contac t Referred To Contact Family Medicine Diagnoses Pain Elbow Right Michael Díaz M.D. [address] [place] [address] [facility] Region Referral ID Status Reason Start Date Expiration Date V isits Requested Visits Authorized [id number] Authorized 05/06/2024 11/05/2025 1 1 * Outpatient (Routine) - Authorized Specialty Diagnoses / Procedures Referred By Contac t Referred To Contact Anesthesiology Diagnoses Pain Elbow Right Michael Díaz M.D. [address] [place] [address] [facility] Region Referral ID Status Reason Start Date Expiration Date V isits Requested Visits Authorized [id number] Authorized 05/06/2024 11/05/2025 1 1 * Outpatient (Routine) - Authorized Specialty Diagnoses / Procedures Referred By Contac t Referred To Contact Orthopedic Surgery Michael Díaz M.D. [address] [place] [address] [facility] Region Referral ID Status Reason Start Date Expiration Date V isits Requested Visits Authorized [id number] Authorized 05/06/2024 11/05/2025 1 1 Reason for Visit * Reason Comments Follow-up * Outpatient (Routine) - Closed Specialty Diagnoses / Procedures Referred By Fermín chan Referred To Contact Orthopedic Surgery Michael Díaz M.D. [address] [place] [address] [facility] Region Referral ID Status Reason Start Date Expiration Date Visits Re quested Visits Authorized [id number] Closed 04/22/2024 10/22/2025 1 1 Encounter Details Date Type Department Care Team (Late st Contact Info) Description 05/06/2024 3:00 PM CDT Office Visit Department of Orthopedic Surgery in [address] [phone] Michael Díaz M.D. [address] [place] [address] Pain Elbow Right (Primary Dx) Discharge Disposition: Home or Self Care Social History Tobacco Use Types Packs/Day Years Used Date Smoking Tobacco: Never Smokeless Tobacco: Never Tobacco Cessation:Counseling Given: Not Answered [facility] Utilities Answer Date Recorded In the past [address] [facility] [employer], oil, or water [employer] threatened to shut off services in your [...] your living situation today? I have a [facility] place to live 02/27/2024 Sex and Gender Information Value Date Recorded Sex Assigned at Female 02/17/2024 7:52 PM CDT Gender Identity Female 02/17/2024 7:52 PM CDT Sexual Orientation Straight 02/17/2024 7: 52 PM CDT documented as of this encounter Consult Notes * Michael Díaz M.D. - 05/06/2024 3:00 PM CDT HISTORY OF PRESENT ILLNESS Kaia is an 88-year-old woman who is here in regard to her right elbow. We had seen her for thispreviously and tried an injection to her elbow joint. She noticed a temporary improvement in regardto her symptoms, but it has not been permanently helpful. She says that it is still very painful for her and difficulties with her range of motion are substantial. OBJECTIVE PHYSICAL EXAMINATION Musculoskeletal: Examination of her elbow, range of motion, we are able to flex up to [id number] degrees and extension is to approximately 45 degrees short of full extension. She does have adequate supination and pronation. 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 ASSESSMENT / PLAN Kaia is an 88-year-old woman dealing with persistent elbow pain. I discussed the treatment options. At this point, we will start with an elbow arthroscopy, anterior posterior spur excision and see if that gives her substantial improvement, in regard to her function. We will plan to see her backat the time of her surgery. She understands the risks, benefits and alternatives to this and desires to proceed. documented in this encounter Plan of Treatment Scheduled Procedures Name Priority Associated Diagnoses Date/Ti me ARTHROSCOPY ELBOW Pain Elbow Right Scheduled Referrals Name Type Priority Associated Diagnoses Order Schedule Orthopedic Surgery Post Op (clinic) Outpatient Referral Routine Expected: 09/26/2024 (Approximate), Expires: 01/28/2025 Pre Operative Evaluation [facility] nurse consult (clinic) Outpatient Referral Routine Pain Elbow Right 1 Occurrences starting 05/06/2024 until 08/06/2025 Primary Care - [facility] consult (clinic) Outpatient Referral Routine Pain Elbow Right 1 Occurrences starting 05/06/2024 until 08/14/2024 documented as of this encounter Visit Diagnoses Diagnosis Pain Elbow Right- Primary documented in this encounter Care Teams Program Director Air Talent Relationship Specialty Start Date End Date None Reported, Pcp PCP - General Family Medicine 02/27/24 documented as of this encounter
--- OUTSIDE RECORDS SUMMARY | 2024-08-02 23:50 | XMS_ITS | Encounter Summary ---
Author Organization [facility] Address [address] [place] [address] Care Team Providers Care Regulatory Intern Name Role Phone None Reported, Pcp Primary Care Provider Unavail able Reason for Visit * Physical Therapy (Routine) - Canceled Specialty Diagnoses / Procedures Referred By Contac t Referred To Contact Diagnoses Primary Osteoarthritis Knee Right Procedures PT Ongoing treatment Michael Díaz M.D. [address] [place] [address] [facility] Region Referral ID Status Reason Start Date Expiration Date V isits Requested Visits Authorized [id number] Canceled 03/03/2024 03/03/2025 99 99 Encounter Details Date Type Department Care Team (Latest Contact Info) Description 04/29/2024 4:00 PM CDT Clinical Support Department of Physical Medicine and Rehabilitation in [address] [place] [phone] Michael Díaz M.D. [address] [place] [address] Lisa Mullins PCheyanne [address] [place] [address] Primary Osteoarthritis Knee Right Social History Tobacco Use Types Packs/Day Years Used Date Smoking Tobacco: Never Smokeless Tobacco: Never [facility] Utilities Answer Date Recorded In the past 12 months has th e [employer], gas, oil, or water [employer] threatened to shut off services in your [...] your living situation today? I have a [facility] place to live 02/27/2024 Sex and Gender Information Value Date Recorded Sex Assigned at Female 02/17/2024 7:52 PM CDT Gender Identity Female 02/17/2024 7:52 PM CDT Sexual Orientation Straight 02/17/2024 7: 52 PM CDT documented as of this encounter Progress Notes * Lisa Mullins P.T. - 04/29/2024 4:00 PM CDT Physical Therapy Outpatient Treatment Note SUBJECTIVE Patient's Name: Kaia Estrella Referring Provider: Michael Díaz M.D. Visit Diagnosis: 1. Primary Osteoarthritis Knee Right Payor: [employer] / Plan: [employer] [facility] H[facility] / Product Type: HMO / PT Next Certification Date: 06/01/24 [facility] Visit Count: 7 Patient comments: Patient reports having no pain after last treatment session; actually her knee felt better. Patient states that her knee is sore today but has been working outside for at least a couple of hours. Patient reports good compliance with HEP. OBJECTIVE Pain: 0/10 currently Observation/Inspection: appears to be in no apparent distress; incision healing; no signs of infection Not wearing spandogrip; decreased edema in L lower leg Mobility/Transfers: independent with all transfers and bed mobility Gait/Stairs: use of no AD with nonantalgic gait Range of Motion: AROM R knee 0-115 degrees; AA R knee flexion 120 degrees post treatment Strength: able to perform [...] heel slides LAQ x 15 SLR x 30 Seated knee flexion/extension with focus on knee flexion stretch Home Exercise Program/Education: as above Assessment Clinical Impression: Patient presents to physical therapy with 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 Impairments: edema, impaired ROM, impaired strength, impaired joint mobility, impaired balance Functional deficits: transfers, walking including stairs, daily activities, dressing/grooming Patient demonstrates improved L knee flexion without pain post treatment. Functional Goals and Timeframes: PT [...] 05/02/24 PT Goal #4 Status: Achieved Plan Patient has follow-up with ortho next week. PT to follow-up only as needed. Treatment Plan: Plan: Plan of care initiated [...] min Total Treatment Time (min): 23 min DISCHARGE STATUS Patient discharged from therapy after this session. Refer to plan of care for first appointment date and recorded visit counts. REASON FOR DISCHARGE: see above progress report on current status and goal status. DISCHARGE RECOMMENDATIONS: Patient would be advised to continue with her previously documented homeprogram. Lisa Mullins P.T. 06/06/2024 documented in this encounter Miscellaneous Notes * Addendum Note - Lisa Mullins P.T. - 04/29/2024 4:00 PM CDTAddended by: LISA MULLINS on: 06/06/2024 11:11 AM Modules accepted: Orders documented in this encounter Plan of Treatment Scheduled Procedures Name Priority Associated Diagnoses Date/Ti me ARTHROSCOPY ELBOW Pain Elbow Right documented as of this encounter Visit Diagnoses Diagnosis Primary Osteoarthritis Knee Right documented in this encounter Care Teams Regulatory Intern Relationship Specialty Start Date End Date None Reported, Pcp PCP - General Family Medicine 02/27/24 documented as of this encounter
--- OUTSIDE RECORDS SUMMARY | 2024-08-02 23:50 | XMS_ITS ---
Author Organization [facility] Address [address] [place] [address] Care Team Providers Care Proof Carrier Name Role Phone Unavailable Unavailable Unavailable Surgery Details Not on file Complications Check Surgery Details section. Procedure Estimated Blood Loss Check Surgery Details section. Procedure Findings Check Surgery Details section. Procedure Specimens Taken Check Surgery Details section.
--- OUTSIDE RECORDS SUMMARY | 2024-08-02 23:50 | XMS_ITS | Encounter Summary ---
Author Organization [facility] Address [address] [place] [address] Care Team Providers Care Channel Turner Name Role Phone None Reported, Pcp Primary Care Provider Unavail able Reason for Visit * Reason Onset Date Comments Surgical Listing 05/06/2024 Encounter Details Date Type Department Care Team (Latest Contact Info) Description 05/06/2024 Clinical Communication Department of Orthopedic Surgery in [address] [phone] Michael Díaz M.D. [address] [place] [phone] Surgical Listing Social History Tobacco Use Types Packs/Day Years Used Date Smoking Tobacco: Never Smokeless Tobacco: Never [facility] Utilities Answer Date Recorded In the past 12 months has [facility] [employer], gas, oil, or water [employer] threatened to shut off services in your [...] your living situation today? I have a [facility] place to live 02/27/2024 Sex and Gender Information Value Date Recorded Sex Assigned at Female 02/17/2024 7:52 PM CDT Gender Identity Female 02/17/2024 7:52 PM CDT Sexual Orientation Straight 02/17/2024 7: 52 PM CDT documented as of this encounter Miscellaneous Notes * Telephone Encounter - Monik Polanco, R.N. - 06/13/2024 9:58 AM CDT Kaia called to cancel her surgery in August. She will be call back in November and hopes to schedule in February of 2025. * Telephone Encounter - Rebeca Travis R.N. - 05/16/2024 12:17 PM CDT Rescheduled right elbow arthroscopy with spur excision to September 16 to be performed by Dr. Díaz in [place] * Telephone Encounter - Monik Polanco R.N. - 05/06/2024 3:21 PM CDT Scheduled right elbow arthroscopy on September 12 to be performed by Dr. Díaz in [place]. BMI Readings from Last 1 Encounters: 03/11/24 36.66 kg/m?? If BMI 55-60, contact Anesthesia as needs to schedule visit for evaluation. If BMI greater than 60,consult with provider. documented in this encounter Plan of Treatment Scheduled Procedures Name Priority Associated Diagnoses Date/Ti me ARTHROSCOPY ELBOW Pain Elbow Right documented as of this encounter Visit Diagnoses Not on filedocumented in this encounter Care Teams Channel Turner Relationship Specialty Start Date End Date None Reported, Pcp PCP - General Family Medicine 02/27/24 documented as of this encounter
--- OUTSIDE RECORDS SUMMARY | 2024-08-02 23:50 | XMS_ITS | Encounter Summary ---
Author Organization [facility] Address [address] [place] [address] Care Team Providers Care Spoke Maker Name Role Phone None Reported, Pcp Primary Care Provider Unavail able Encounter Details Date Type Department Care Team (Late st Contact Info) Description 06/12/2024 Clinical Communication Department of Orthopedic Surgery in [place], [place] [address] [place] [phone] Michael Díaz M.D. [address] [place] [phone] Social History Tobacco Use Types Packs/Day Years Used Date Smoking Tobacco: Never Smokeless Tobacco: Never [facility] Utilities Answer Date Recorded In the past 12 months has [facility], gas, oil, or water company threatened to shut off services in your [...] your living situation today? I have a [facility] place to live 02/27/2024 Sex and [...] on filedocumented in this encounter Care Teams Spoke Maker Relationship Specialty Start Date End Date None Reported, Pcp PCP - General Family Medicine 02/27/24 documented as of this encounter
--- OUTSIDE RECORDS SUMMARY | 2024-08-02 23:50 | XMS_ITS | Encounter Summary ---
Author Organization [facility] Address [address] [place] [address] Care Team Providers Care Lathe Mechanic Name Role Phone None Reported, Pcp Primary Care Provider Unavail able Reason for Visit * Reason Comments Med Refill Encounter Details Date Type Department Care Team (Late st Contact Info) Description 03/31/2024 Refill Department of Orthopedic Surgery in [place], [place] [address] [place] [phone] Erlinda March APRN, C.N.P., D.N.P. [address] [place] [address] Med Refill Social History Tobacco Use Types Packs/Day Years Used Date Smoking Tobacco: Never Smokeless Tobacco: Never [facility] Utilities Answer Date Recorded In the past 12 months has [facility] [employer], gas, oil, or water [employer] threatened to shut off services in your [...] your living situation today? I have a [facility] place to live 02/27/2024 Sex and Gender Information Value Date Recorded Sex Assigned at Female 02/17/2024 7:52 PM CDT Gender Identity Female 02/17/2024 7:52 PM CDT Sexual Orientation Straight 02/17/2024 7: 52 PM CDT documented as of this encounter Miscellaneous Notes * Telephone Encounter - Berkley Lopez R.N. - 03/31/2024 3:16 PM CDT Pt notified of pain med refill documented in this encounter Plan of Treatment Scheduled Procedures Name Priority Associated Diagnoses Date/Ti me ARTHROSCOPY ELBOW Pain Elbow Right documented as of this encounter Visit Diagnoses Not on filedocumented in this encounter Care Teams Lathe Mechanic Relationship Specialty Start Date End Date None Reported, Pcp PCP - General Family Medicine 02/27/24 documented as of this encounter
--- OUTSIDE RECORDS SUMMARY | 2024-08-02 23:50 | XMS_ITS | Referral Summary ---
Author Organization [facility] Address [address] [place] [address] Care Team Providers Care Director Of Search Engine Marketing Name Role Phone None Reported, Pcp Primary Care Provider Unavail able Source Comments Patient records contain information from all sites at [facility]. For routine questions regarding patient records, call [phone] during business hours, M-F 8:00 AM - 5:00 PM Central Time. Record requests for emergency care only can be directed to [phone] at any time.[facility] Encounters Date Type Department Care Team Description 06/22/2024 Refill Department of Orthopedic Surgery in [address] [address] Michael Díaz M.D. Med Refill 06/12/2024 Clinical Communication Department of Orthopedic Surgery in [address] [address] Michael Díaz M.D. 05/30/2024 Refill Department of Orthopedic Surgery in [address] [address] Michael Díaz M.D. Med Refill 05/06/2024 Clinical Communication Department of Orthopedic Surgery in [address] [address] Micheal Díaz M.D. Surgical Listing 05/06/2024 3:00 PM CDT Office Visit Department of Orthopedic Surgery in [address] [place] [id number] Michael Díaz M.D. Pain Elbow Right (Primary Dx) Discharge Disposition: Home or Self Care from Last 3 Months Allergies Active Allergy Reactions Criticality Noted Date Comments Amoxicillin-Pot Clavulanate GI intolerance High 08/12/2009 Severe diarrhea - c.diff Ciprofloxacin Tendonitis High 05/17/2015 Broken tendon Hydrocodone-Acetaminop hen Other (see comments) High 05/06/2019 Per patient on 02/18/24, she experiences nightmares Metformin GI intolerance Medium 05/06/2019 Diarrhea Tetracycline Angioedema High 05/01/2003 Minocin - feet swelled Medications Medication Sig Dispensed Refills Start Date End Date Status simvastatin (ZOCOR) 20 mg tablet Take 20 mg by mouth at bedtime. Active irbesartan-hydroCH LOROthiazide (AVALIDE) 150-12.5 mg per tablet Take 2 tablets by mouth daily. Active glimepiride (AMARYL) 4 mg tablet Take 4 mg by mouth 2 (two) times a day. Active potassium chloride (KLOR-CON SPRINKLE) 10 mEq ER sprinkle capsule Take 10 mEq by mouth daily. Active calcium carbonate-vitamin D3 1,500 mg (600 mg calcium)-5 mcg (200 Unit) per tablet Take 1 tablet by mouth every other day. Active multivitamin-copper miner hij-WH-vetobemv-eris tein (Centrum Silver) 0.4 mg-300 mcg- 250 mcg tablet Take 1 tablet by mouth daily. Active UNABLE TO FIND Apply 1 each topically once a week. On Sundays, Med Name: fluorouracil cream Active aspirin [address] tablet Take 1 tablet (81 mg total) by mouth 2 (two) times a day. 120 tablet 02/28/2024 Active sennosides-docusat e sodium (SENOKOT-S) 8.6-50 mg per tablet Take 1 tablet by mouth 2 (two) times a day. 100 tablet 02/28/2024 Active acetaminophen (TYLENOL) 500 mg tablet Take 2 tablets (1,000 mg total) by mouth every 6 (six) hours. 100 tablet 02/28/2024 Active apixaban (ELIQUIS) 5 mg tablet Take 2 tablets (10 mg total) by mouth 2 (two) times a day for 7 days. 28 tablet 03/11/2024 Active oxyCODONE (ROXICODONE) 5 mg immediate release tabletIndications: Prolonged Acute Pain/Traumatic Injury Take 1 tablet (5 mg total) by mouth every 4 (four) hours as needed for pain Indication: Prolonged Acute Pain/Traumatic Injury. 30 tablet 03/31/2024 Active Additional Information Patient not taking.Reported on 05/06/2024 celecoxib (CeleBREX) 200 mg capsule take one capsule by mouth every day 30 capsule 06/03/2024 Active Active Problems Problem Noted Date Diagnosed Date Pain Elbow Right 05/06/2024 Hypertension Essential Primary 02/22/2024 Diabetes Mellitus Type 2 Without Complication Primary Osteoarthritis Knee Right 12/20/2023 Social History Tobacco Use Types Packs/Day Years Used Date Smoking Tobacco: Never Smokeless Tobacco: Never Tobacco Cessation:Counseling Given: Not Answered [facility] Utilities Answer Date Recorded In the past 12 months has [facility] [employer] gas, oil, or water Decision Pace threatened to shut off services in your [...] money to buy more. Never true 02/27/20 24 Within the past 12 months, t he [...] living situation today? I have a [facility] place to live 02/27/2024 Sex and Gender Information Value Date Recorded Sex Assigned at Female 02/17/2024 7:52 PM CDT Gender Identity Female 02/17/2024 7:52 PM CDT Sexual Orientation Straight 02/17/2024 7: 52 PM CDT Last Filed Vital Signs Vital Sign Reading Time Taken Comments Blood Pressure 122/56 03/11/2024 9:30 PM CDT Pulse 85 03/11/2024 10:15 PM CDT Temperature 36.7 ??C (98.1 ??F) 03/11/2024 6:35 PM CD T Respiratory Rate 13 03/11/2024 7:15 PM CDT Oxygen Saturation 98% 03/11/2024 10:15 PM CDT Inhaled Oxygen Concentration - - Weight 88 kg (194 lb 0.1 oz) 03/11/2024 6:38 PM CDT Height 154.9 cm (5' 1) 02/27/2024 11:57 AM CDT Body Mass Index 36.66 02/27/2024 11:57 AM CDT Plan of Treatment Scheduled Procedures Name Priority Associated Diagnoses Date/Ti me ARTHROSCOPY ELBOW Pain Elbow Right Medical Devices Implanted Type Area What Job Titles Mean Device Identifier Shelf Expiration Date Model / Serial / Lot Kn Fem Trt Rt Pors Sz-5 - [id number] Implanted:Qty: 1 on 02/27/2024 by Michael Díaz M.D. at [facility] Knee Implant Right: Knee Hadley 12/31/2028 5516-F-502 / / [id number] Bsplt Tib Trt Sz4 - [id number] Implanted:Qty: 1 on 02/27/2024 by Michael Díaz M.D. at [facility] Knee Implant Right: Knee [place]ley 11/29/2028 5536-B-400 / / [id number] Ins Tib Trt Ps X3 Sz4 11 - [id number] Implanted:Qty: 1 on 02/27/2024 by Michael Díaz M.D. at [facility] Knee Implant Right: Knee Gregorio 12/02/2028 5532-G-411 -E / / [id number] Pat Trt Sym Mtl 10x36 - [id number] - [id number] Implanted:Qty: 1 on 02/27/2024 by Michael Díaz M.D. at [facility] Knee Implant Right: Knee Gregorio 08/26/2028 5556-L-360 / [id number] / [id number] Procedures Procedure Name Priority Date/Time Associated Diagnosis Comments BASIC METABOLIC PANEL, S/P STAT 03/11/2024 6:49 PM CDT from Last 3 Months or Most Recently Relevant to Health Maintenance Results * (ABNORMAL) Basic Metabolic Panel (03/11/2024 6:49 PM CDT) Potassium, P 3.6 3.6 - 5.2 mmol/L 03/11/2024 7:11 PM CDT CNFL Sodium, P 139 135 - 145 mmol/L 03/11/2024 7:11 PM CDT CNFL Chloride, P 103 98 - 107 mmol/L 03/11/2024 7:11 PM CDT CNFL Bicarbonate, P 23 22 - 29 mmol/L 03/11/2024 7:11 PM CDT CNFL Anion Gap, P 13 7 - 15 03/11/2024 7:11 PM CDT CNFL BUN (Blood Urea Nitrogen), P 22(H) 6 - 21 mg/dL 03/11/2024 7:11 PM CDT CNFL Creatinine 0.81 0.59 - 1.04 mg/dL 03/11/2024 7:11 PM CDT CNFL Estimated GFR (eGFR) 70 >=60 mL/min/BSA 03/11/2024 7:11 PM CDT CNFL Comment: Estimated GFR calculated using the 2020 CKD_EPI creatinine equation. Calcium, Total, P 9.3 8.8 - 10.2 mg/dL 03/11/2024 7:11 PM CDT CNFL Glucose, P 117 70 - 140 mg/dL 03/11/2024 7:11 PM CDT CNFL Blood (Blood, Venous) 03/11/2024 6:49 PM CDT 03/11/2024 6:53 PM CDT Pan Zelaya P.A.-C. LAB BLOOD ADD-ON [facility] [address] [place] [address], [place] CNFL [facility] in [address] [address] from Last 3 Months or Most Recently Relevant to Health Maintenance Advance Directives For more information, please contact: [phone] Documents on File Type Date Recorded Patient Gre Instructor Expl anation Advance Directives 03/26/2024 10:34 AM BODY /ORGAN DONATION Advance Directives 03/25/2024 6:57 AM Ailyn BEAL/ADVOCATE/AGENT/REP RESENTATIVE/SURROGATE * Full Code (Latest Code Status on File) Date Activated Date Inactivated Comments 02/27/2024 12:04 PM 02/28/2024 2:08 PM Question Answer Comments Full Code: Not Discussed Due to: Patient not available Healthcare Agents on File Name Relationship Healthcare Agent Relationstn p Communication Ailyn Estrella Daughter Health Care Agent [email or web address] Ari Sameer Son First Alternate Health Care Agent Care Teams Director Of Search Engine Marketing Relationship Specialty Start Date End Date None Reported, Pcp PCP - General Family Medicine 02/27/24
--- OUTSIDE RECORDS SUMMARY | 2024-08-02 23:50 | XMS_ITS | Clinical Summary ---
Author Organization [facility] Address [address] [place] [address] Care Team Providers Care Pump Erector Helper Name Role Phone None Reported, Pcp Primary Care Provider Unavail able Source Comments Patient records contain information from all sites at [facility]. For routine questions regarding patient records, call [phone] during business hours, M-F 8:00 AM - 5:00 PM Central Time. Record requests for emergency care only can be directed to [phone] at any time.[facility] Allergies Active Allergy Reactions Criticality Noted Date [...] tablet by mouth every other day. Active multivitamin-continuous mining machine lode miner wsb-UU-liemkrix-eris tein (Centrum Silver) 0.4 mg-300 mcg- 250 [...] Without Complication Primary Osteoarthritis Knee Right 12/20/2023 Encounters Date Type Department Care Team Description 06/22/2024 Refill Department of Orthopedic Surgery in [address] [phone] Michael Díaz M.D. Med Refill 06/12/2024 Clinical Communication Department of Orthopedic Surgery in [address] [phone] Michael Díaz M.D. 05/30/2024 Refill Department of Orthopedic Surgery in [address] [address] Michael Díaz M.D. Med Refill 05/06/2024 3:00 PM CDT Office Visit Department of Orthopedic Surgery in [address] [address] Michael Díaz M.D. Pain Elbow Right (Primary Dx) Discharge Disposition: Home or Self Care 05/06/2024 Clinical Communication Department of Orthopedic Surgery in [address] [address] Michael Díaz M.D. Surgical Listing from Last 3 Months Family History Medical History Relation Name Comments Anesthesia problems Sister Anisa Delayed emergence Relation Name Status Comments Sister Anisa Social History Tobacco Use Types Packs/Day Years Used Date Smoking Tobacco: Never Smokeless Tobacco: Never Tobacco Cessation:Counseling Given: Not Answered [facility] Utilities Answer Date Recorded In the past 12 months has [facility] [employer], oil, or water Guided Interventions threatened to shut off services in your [...] your living situation today? I have a [facility] place to live 02/27/2024 Sex [...] Date/Ti me ARTHROSCOPY ELBOW Pain Elbow Right Health Maintenance Due Date Last Done Comments Diabetic Office Visit with F oot Exam 1936 Dilated Eye Exam 1936 Hemoglobin A1C 1936 Urine Albumin 1936 Visit: Chronic Disease, age 18+ 1936 Visit: Medicare Annual Wellness 1936 Hepatitis B Vaccines (1 of 3 - Risk 3-dose series) 1996 DTaP,Tdap,and Td Vaccines (1 - Tdap) 05/20/2019 05/19/2019, 05/20/2009 Depression Screening (Annual PHQ-2) 11/19/2023 COVID-19 Vaccine (7 2022-2 4 season) 2024 09/25/2023, 08/22/2022, 04/04/2022, Additional history exists Influenza Vaccine (#1) 2024 , 08/22/2022, 08/23/2021, Additional history exists Creatinine Level (Kidney Fun ction Test) 03/11/2025 03/11/2024, 03/06/2024 Potassium Level 03/11/2025 03/11/2024, 03/06/2024 Sodium Level 03/11/2025 03/11/2024, 03/06/2024 Pneumococcal vaccine (65+ years) Completed 08/19/2019, 05/04/2016, 07/31/2012, Additional history exists Zoster Vaccines Completed 09/21/2020, 06/08/2020 Fall Risk Screen (Annual) Completed 02/27/2024 Medical Devices Implanted Type Area Pigment Grinder Device Identifier Shelf Expiration Date Model / Serial / Lot Kn Fem Trt Rt Pors Sz-5 - [id number] Implanted:Qty: 1 on 02/27/2024 by Michael Díaz M.D. at [facility] Knee Implant Right: Knee [place] 12/31/2028 5516-F-502 / / [id number] Bsplt Tib Trt Sz4 - [id number] Implanted:Qty: 1 on 02/27/2024 by Michael Díaz M.D. at [facility] Knee Implant Right: Knee [place] 11/29/2028 5536-B-400 / / [id number] Ins Tib Trt Ps X3 Sz4 11 - [id number] Implanted:Qty: 1 on 02/27/2024 by Michael Díaz M.D. at [facility] Knee Implant Right: Knee Gregorio 12/02/2028 5532-G-411 -E / / [id number] Pat Trt Sym Mtl 10x36 - [id number] - [id number] Implanted:Qty: 1 on 02/27/2024 by Michael Díaz M.D. at [facility] Knee Implant Right: Knee [place] 08/26/2028 5556-L-360 / [id number] / [id number] Procedures Procedure Name Priority [...] CDT Pan Zelaya P.A.-C. LAB BLOOD ADD-ON [facility] [address] [place] [address], [place] CNFL [facility] in [address] [address] from Last 3 Months or Most Recently Relevant to Health Maintenance Advance Directives For more information, please contact: [phone] Documents on File Type Date Recorded Patient Amalgamator Expl anation Advance Directives 03/26/2024 10:34 AM BODY /ORGAN DONATION Advance Directives 03/25/2024 6:57 AM Ailyn roberson HCPOA/ADVOCATE/AGENT/REP RESENTATIVE/SURROGATE * Full Code (Latest Code Status on File) Date Activated Date Inactivated Comments 02/27/2024 12:04 PM 02/28/2024 2:08 PM Question Answer Comments Full Code: Not Discussed Due to: Patient not available Healthcare Agents on File Name Relationship Healthcare Agent Relationsco p Communication Ailyn Estrella Daughter Health Care Agent [email or web address] Ari Sameer Son First Alternate Health Care Agent Care Teams Pump Erector Helper Relationship Specialty Start Date End Date None Reported, Pcp PCP - General Family Medicine 02/27/24
--- OUTSIDE RECORDS SUMMARY | 2024-08-02 23:51 | XMS_ITS | Clinical Summary ---
Author Organization [employer] [facility] Address [place], [place] [address] Care Team Providers Care Switch Cleaner Name Role Phone Kylah Gamble CATTLE SHIPPER Primary Care Provider [phone] Allergies Active Allergy Reactions Criticality Noted Date Comments Ciprofloxacin Other - Describe In Comment Field 05/17/2015 Broken tendon Metformin Diarrhea 05/06/2019 Hydrocodone-Acetaminoph en Nightmares 05/06/2019 Oxycodone Other - Describe In Comment Field 10/17/2011 Hallucinations with oxycontin but can take oxycodone Tetracycline Edema 05/01/2003 Minocin - feet swelled Medications Medication Sig Dispensed Refills Start Date End Date Status simvastatin (ZOCOR) 20 mg tablet Take 1 tablet by mouth once daily. 3 02/24/2019 Active irbesartan-hydrochloro thiazide (AVALIDE) 150-12.5 mg tablet Take 2 tablets by mouth once daily. 3 02/24/2019 Active albuterol HFA (PROVENTIL HFA) 90 mcg/actuation inhaler Inhale 2 Puffs by mouth every 6 hours if needed. 11/25/2013 Active aspirin-calcium carbonate 81 mg-300 mg calcium(777 mg) tab Take 1 Tab by mouth once daily. Active calcium carbonate-cholecalcife rol, 600mg-200 units, (CALTRATE-600 + VIT D) tablet Take 1 Tab by mouth once daily with a meal. Active potassium chloride (MICRO-K) 10 mEq Controlled-release capsule Take 10 mEq by mouth once daily. 06/28/2023 Active glimepiride (AMARYL) 4 mg tablet Take 4 mg by mouth. 06/19/2023 Active aspirin (ECOTRIN) 81 mg enteric coated tablet Take 1 Tablet by mouth once daily. Active Social History Tobacco Use Types Packs/Day Years Used Date Smoking Tobacco: Never Smokeless Tobacco: Never Tobacco Cessation:Counseling Given: No Social Connections Answer Date Recorded Frequency of Communication with Friends and Fami ly Not on file 07/05/2023 Sex and Gender Information Value Date Recorded Sex Assigned at Not on file Gender Identity Not on file Sexual Orientation Not on file Obstetrics History Last Filed Vital Signs Vital Sign Reading Time Taken Comments Blood Pressure 128/64 07/05/2023 4:02 PM CDT Pulse 69 07/05/2023 4:02 PM CDT Temperature - - Respiratory Rate - - Oxygen Saturation 94% 07/05/2023 4:02 PM CDT Inhaled Oxygen Concentration - - Weight 87.3 kg (192 lb 6.4 oz) 07/05/2023 4:02 P M CDT Height - - Body Mass Index - - Plan of Treatment Health Maintenance Due Date Last Done Comments Tdap 1947 Depression screening for age 12+ 1948 BMI (ht and wt on same day) for age 18+ 1954 Tetanus booster 1956 Zoster (shingles) series for age 50+ (1 of 2) 1986 RSV vaccine for adults or (1 - 1-dose 60+ series) 1996 DEXA/DXA scan for age 65+ 2001 Medicare Wellness for age 65+ 2001 Pneumococcal series for age 65+ (1 of 1 - PCV) 2001 COVID-19 vaccine series (2022-24 season) 2024 08/22/2022, 04/04/2022, 08/30/2021, Additional history exists Influenza for age 65+ 07/20/2024 Care Teams Switch Cleaner Relationship Specialty Start Date End Date Kylah Gamble NP [address] [place] [address] PCP - General Emergency Medicine 07/05/23
--- OUTSIDE RECORDS SUMMARY | 2024-08-02 23:51 | XMS_ITS | Encounter Summary ---
Author Organization [facility] Address [address] [place] [address] Care Team Providers Care Textile Coating Machine Operator Name Role Phone Pipe Husain MD Primary Care Provider [phone] Billie Barnes RN Unavailable [phone] Karen Wise MD Primary Care Provider [phone] Amina Rivera MD Primary Care Provider [phone] Shanelle Reno MD Primary Care Provider Shanelle Reno MD Unavailable [phone] Reason for Visit * Reason Onset Date Comments Refill Request 12/13/2012 Spiriva Handihal er Refill Request 12/13/2012 Ventolin HFA inh aler Encounter Details Date Type Department Care Team (Late st Contact Info) Description 12/13/2012 Refill [facility] [id number] [place] [phone] Pipe Husain MD [address] [place] [address] Refill Request (Spiriva Handihaler); Refill Request (Ventolin HFA inhaler) Social History Tobacco Use Types Packs/Day Years Used Date Smoking Tobacco: Never Smokeless Tobacco: Never Alcohol Use Standard Drinks/Week Comments No 0 (1 standard drink = 0.6 oz pur e alcohol) Sex and Gender Information Value Date Recorded Sex Assigned at Female 12/30/2023 11:49 AM LATIN PROFESSOR Gender Identity Female 12/30/2023 11:49 AM LATIN PROFESSOR Sexual Orientation Choose not to disclose 2023 11:49 AM LATIN PROFESSOR documented as of this encounter Miscellaneous Notes * Telephone Encounter - Amelie Raza RPH - 12/13/2012 10:58 AM CST Forwarding refill requests to provider fro review, both were ordered/refilled over a year ago. Does patient need SOB/Asthma/COPD f/u and/or spirometry? Amelie Raza, PharmD, [facility] [phone]] N PROFESSOR * Telephone Encounter - Jeremy Flores - 12/13/2012 8:50 AM CST Ventolin HFA inhaler Last Fill Date: 12/12/2010 Last Fill Quantity: 1 inhaler Last Office Visit: 12/10/2012 Spiriva Handihaler Last Fill Date: 10/17/2011 Last Fill Qty: 90 Last Office Visit: 12/10/2012 Date of Last Asthma Action Plan Letter: n/a Date of last Asthma Control Test (ACT): n/a Score of Last Asthma Control Test (ACT): n/a Date of Last Spirometry Test: 10/02/2011 Jeremy [facility]ESS[facility] documented in this encounter Plan of Treatment Not on file documented as of this encounter Visit Diagnoses Diagnosis Other dyspnea and respiratory abnormality- Primary SOB (shortness of breath) Shortness of breath documented in this encounter Care Teams Textile Coating Machine Operator Relationship Specialty [place] [address] [place] [address] PCP - General 09/09/02 02/25/14 [place] [address] [place] [address] PCP - General Internal Medicine 02/26/14 03/24/14 [place] [address] [place] [address] PCP - General Family Practice 03/25/14 08/23/15 [place] [address] [place] [address] PCP - General Family Practice 08/24/15 [place] [address] [address] [place] [address] PCP - Assigned PCP 11/28/15 11/23/18 [place] [address] [place] [address] Job Trainer 11/05/13 01/16/19 documented as of this encounter
--- OUTSIDE RECORDS SUMMARY | 2024-08-02 23:51 | XMS_ITS | Encounter Summary ---
Author Organization [facility] Address [address] [place] [address] Care Team Providers Care Senior Radiation Therapist Name Role Phone ZeitaBillie RN Unavailable [phone] Karen Wise MD Primary Care Provider [phone] Amina Rivera MD Primary Care Provider [phone] Shanelle Reno MD Primary Care Provider Shanelle Reno MD Unavailable [phone] Encounter Details Date Type Department Care Team (Late st Contact Info) Description 03/12/2014 MyC Medical Advice Initial Department [facility] Social History Tobacco Use Types Packs/Day Years Used Date Smoking Tobacco: Never Smokeless Tobacco: Never Alcohol Use Standard Drinks/Week Comments No 0 (1 standard drink = 0.6 oz pur e alcohol) Sex and Gender Information Value Date Recorded Sex Assigned at Female 12/30/2023 11:49 AM CHIEF NURSING OFFICER Gender Identity Female 12/30/2023 11:49 AM CHIEF NURSING OFFICER Sexual Orientation Choose not to disclose 2023 11:49 AM CHIEF NURSING OFFICER documented as of this encounter Plan of Treatment Not on file documented as of this encounter Visit Diagnoses Not on filedocumented in this encounter Care Teams Senior Radiation Therapist Relationship Specialty [place] [address] [address] [place] [address] PCP - General Internal Medicine 02/26/14 03/24/14 [place] [address] [place] [address] PCP - General Family Practice 03/25/14 08/23/15 [place] [address] [place] [address] PCP - General Family Practice 08/24/15 [place] [address] [facility] [address] PCP - Assigned PCP 11/28/15 11/23/18 Billie Barnes RN Child Nutrition Director 11/05/13 01/16/19 documented as of this encounter
--- OUTSIDE RECORDS SUMMARY | 2024-08-02 23:51 | XMS_ITS | Encounter Summary ---
Author Organization [facility] Address [address] [place] [address] Care Team Providers Care Legal Assistant Name Role Phone Pipe Husain MD Primary Care Provider [phone] Billie Barnes RN Unavailable [phone] Karen Wise MD Primary Care Provider [phone] Amina Rivera MD Primary Care Provider [phone] Shanelle Reno MD Primary Care Provider Shanelle Reno MD Unavailable Encounter Details Date Type Department Care Team (Late st Contact Info) Description 10/01/2012 [facility] [address] [address] [place] [id number] [place] [id number] Social History Tobacco Use Types Packs/Day Years Used Date Smoking Tobacco: Never Smokeless Tobacco: Never Alcohol Use Standard Drinks/Week Comments No 0 (1 standard drink = 0.6 oz pur e alcohol) Sex and Gender Information Value Date Recorded Sex Assigned at Female 12/30/2023 11:49 AM MORTARMAN Gender Identity Female 12/30/2023 11:49 AM MORTARMAN Sexual Orientation Choose not to disclose 2023 11:49 AM MORTARMAN documented as of this encounter Plan of Treatment Not on file documented as of this encounter Visit Diagnoses Not on filedocumented in this encounter Care Teams Legal Assistant Relationship Specialty [place] [address] [place] [address] PCP - General 09/09/02 02/25/14 [place] [address] [address] [place] [address] PCP - General Internal Medicine 02/26/14 03/24/14 [place] [address] [place] [address] PCP - General Family Practice 03/25/14 08/23/15 [place] [address] [facility] [place] [address] PCP - General Family Practice 08/24/15 [place] [address] [place] [address] PCP - Assigned PCP 11/28/15 11/23/18 Billie Barnes, MERNA [address] [facility] MedicalVAL[facility]ITAL[facility] [place] [address] Veterinary Meat Inspector 11/05/13 01/16/19 documented as of this encounter
--- OUTSIDE RECORDS SUMMARY | 2024-08-02 23:51 | XMS_ITS | Encounter Summary ---
Author Organization [place] Address [address] [place] [address] Care Team Providers Care Pocketed Spring Assembler Name Role Phone Pipe Husain MD Primary Care Provider Billie Barnes RN Unavailable [phone] Karen Wise MD Primary Care Provider [phone] Amina Rivera MD Primary Care Provider [phone] Shanelle [facility] MD Primary Care Provider Shanelle [facility] MD Unavailable [phone] Reason for Visit * Reason Onset Date Comments Refill Request 09/30/2013 irma peck Encounter Details Date Type Department Care Team (Late st Contact Info) Description 09/30/2013 MyC Refill [facility] [id number] [place] [address] [phone] Pipe Husain MD [address] [place] [address] [phone] Refill Request (irma peck) Social History Tobacco Use Types Packs/Day Years Used Date Smoking Tobacco: Never Smokeless Tobacco: Never Alcohol Use Standard Drinks/Week Comments No 0 (1 standard drink = 0.6 oz pur e alcohol) Sex and Gender Information Value Date Recorded Sex Assigned at Female 12/30/2023 11:[address] ROLLER ENGINEER Gender Identity Female 12/30/2023 11:[address] ROLLER ENGINEER Sexual Orientation Choose not to disclose 2023 11:[address] ROLLER ENGINEER documented as of this encounter Miscellaneous Notes * Telephone Encounter - Shoshana Barreto RN - 09/30/2013 2:41 PM CST Last office visit: [id number] Reason for visit: pre-op Recent Labs Lab Test 07/29/12 1636 09/26/11 1457 CHOL 260* 234* HDL 51 49* LDL 165* 137* TRIG 224* 242* CHOLHDLRATIO 5.1* 4.8 AST 42 07/29/2012 ALT 38 07/29/2012 BP Readings from Last 2 Encounters: 04/11/13 110/78 04/02/13 148/82 CR 0.76 07/29/2012 POTASSIUM 4.1 07/29/2012 CANNOT FILL PSO- > 6 MOS FOR ABOVE LABS [facility] MESSAGE SENT Shoshana Barreto RN ROLLER ENGINEER * Telephone Encounter - Shoshana Barreto RN - 09/30/2013 2:40 PM CSTMessage from [facility]: Original authorizing provider: Pipe Husain MD, MD Kaia Jc Estrella would like a refill of the following medications: irbesartan-hydrochlorothiazide (AVALIDE) 150-12.5 MG per tablet [Pipe Husain MD, MD] simvastatin (ZOCOR) 20 MG tablet [Pipe Husain MD, MD] Preferred pharmacy: [facility] [address] [facility] Comment: ROLLER ENGINEER documented in this encounter Plan of Treatment Not on file documented as of this encounter Visit Diagnoses Diagnosis Benign hypertension Essential hypertension, benign Hyperlipidemia Other and unspecified hyperlipidemia documented in this encounter Care Teams Pocketed Spring Assembler Relationship Specialty [place] [address] [place] [address] PCP - General 10/22/02 4/9/14 [place] [address] [address] [address] PCP - General Internal Medicine 02/26/14 03/24/14 [place] [address] [place] [address] PCP - General Family Practice 03/25/14 08/23/15 [place] [address] [place] [address] PCP - General Family Practice 08/24/15 [place] [address] [address] [place] [address] PCP - Assigned PCP 11/28/15 11/23/18 Billie Barnes, MERNA [address] [place] [address] Well Logging Operator Mud Analysis 11/05/13 01/16/19 documented as of this encounter
--- OUTSIDE RECORDS SUMMARY | 2024-08-02 23:51 | XMS_ITS | Encounter Summary ---
Author Organization [facility] Address [address] [place] [address] Care Team Providers Care Head Loader Name Role Phone Billie Barnes RN Unavailable Shanelle [facility] MD Primary Care Provider Shanelle [facility] MD Unavailable [phone] Encounter Details Date Type Department Care Team (Late st Contact Info) Description 08/30/2015 MyC Medical Advice [address], [address] [address] Fabby Nguyen Social History Tobacco Use Types Packs/Day Years Used Date Smoking Tobacco: Never Smokeless Tobacco: Never Alcohol Use Standard Drinks/Week Comments Yes 0 (1 standard drink = 0.6 oz pur e alcohol) OCC Sex and Gender Information Value Date Recorded Sex Assigned at Female 12/30/2023 11:49 AM GAMING COMMISSIONER Gender Identity Female 12/30/2023 11:49 AM GAMING COMMISSIONER Sexual Orientation Choose not to disclose 2023 11:49 AM GAMING COMMISSIONER documented as of this encounter Plan of Treatment Not on file documented as of this encounter Visit Diagnoses Not on filedocumented in this encounter Care Teams Head Loader Relationship Specialty Start Date End Date Shanelle [facility] MD PCP - General Family Practice 08/24/15 [place] [address] [address] [address] PCP - Assigned PCP 11/28/15 11/23/18 Billei Barnes RN Enterprise Analyst 11/05/13 01/16/19 documented as of this encounter
--- OUTSIDE RECORDS SUMMARY | 2024-08-02 23:51 | XMS_ITS | Encounter Summary ---
Author Organization [facility] Address [address] [place] [address]. [place] [address] Care Team Providers Care Freight Adjuster Name Role Phone Pipe Husain MD Primary Care Provider [phone] Billie Barnes RN Unavailable Karen Wise MD Primary Care Provider [phone] Amina Rivera MD Primary Care Provider [phone] Shanelle [facility] MD Primary Care Provider Shanelle [facility] MD Unavailable [phone] Reason for Visit * Reason Onset Date Comments Refill Request 02/13/2013 Simvastatin 20mg Encounter Details Date Type Department Care Team (Late st Contact Info) Description 02/13/[address] Ref[address] M [address] [phone] [place] [id number] [place] [address] Refill Request (Simvastatin 20mg) Social History Tobacco Use Types Packs/Day Years Used Date Smoking Tobacco: Never Smokeless Tobacco: Never Alcohol Use Standard Drinks/Week Comments No 0 (1 standard drink = 0.6 oz pur e alcohol) Sex and Gender Information Value Date Recorded Sex Assigned at Female 12/30/2023 11:49 AM ACID CONCENTRATOR Gender Identity Female 12/30/2023 11:49 AM ACID CONCENTRATOR Sexual Orientation Choose not to disclose 2023 11:49 AM ACID CONCENTRATOR documented as of this encounter Miscellaneous Notes * Telephone Encounter - Anderson Rivera RPH - 02/13/2013 10:51 AM CDT Forwarding to primary provider for review - Notes from 07/29/12 LDL results state to increase Simvastatin dose to 40mg and follow up in 8 weeks. I didn't see an order for the 40mg tablets so it looks like the patient has still been taking 20mg daily. Notes Recorded by Pipe Husain MD on 08/08/2012 at 11:00 PM Go to 40 mg of simvastatin. [place] [address] IU of vit d. Recheck in [address] [facility] Pharmacist [facility] [phone] * Telephone Encounter - Jeremy Flores - 02/13/2013 9:44 AM CDT Last Fill Date: 11/06/2012 Last Fill Quantity: 90 Last Office Visit: 12/10/2012 CHOL 260 07/29/2012 HDL 51 07/29/2012 LDL 165 07/29/2012 TRIG 224 07/29/2012 CHOLHDLRATIO 5.1 07/29/[address] [facility] documented in this encounter Plan of Treatment Not on file documented as of this encounter Visit Diagnoses Diagnosis Hyperlipidemia- Primary Other and unspecified hyperlipidemia documented in this encounter Care Teams Freight Adjuster Relationship Specialty [place] [address] [place] [address] PCP - General 09/09/02 02/25/14 [place] [address] [address] [place] [address] PCP - General Internal Medicine 02/26/14 03/24/14 [place] [address] [place] [address] PCP - General Family Practice 03/25/14 08/23/15 [place] [address] [place] [address] PCP - General Family Practice 08/24/15 [place] [address] [place] [address] PCP - Assigned PCP 11/28/15 11/23/18 Billie Barnes, MERNA [address] [place] [address] Retail Account Representative 11/05/13 01/16/19 documented as of this encounter
--- OUTSIDE RECORDS SUMMARY | 2024-08-02 23:51 | XMS_ITS | Encounter Summary ---
Author Organization [place] Address [address] [place] [address] Care Team Providers Care Seismograph Chief Name Role Phone Pipe Husain MD Primary Care Provider [phone] Billie Barnes RN Unavailable [phone] Karen Wise MD Primary Care Provider [phone] Amina Rivera MD Primary Care Provider [phone] Shanelle [facility] MD Primary Care Provider Shanelle [facility] MD Unavailable [phone] Reason for Visit * Reason Onset Date Comments Patient/info Update 02/09/2011 shoulder Encounter Details Date Type Department Care Team (Late st Contact Info) Description 02/09/2011 [facility] Medical Advice [address] [phone] [place] [id number] [place] [address] Patient/info Update (shoulder) Social History Tobacco Use Types Packs/Day Years Used Date Smoking Tobacco: Never Alcohol Use Standard Drinks/Week Comments No 0 (1 standard drink = 0.6 oz pur e alcohol) Sex and Gender Information Value Date Recorded Sex Assigned at Female 12/30/2023 11:49 AM GRAB JACK WORKER Gender Identity Female 12/30/2023 11:49 AM GRAB JACK WORKER Sexual Orientation Choose not to disclose 2023 11:49 AM GRAB JACK WORKER documented as of this encounter Plan of Treatment Not on file documented as of this encounter Visit Diagnoses Not on filedocumented in this encounter Care Teams Seismograph Chief Relationship Specialty [place] [address] [place] [address] PCP - General 09/09/02 02/25/14 [place] [address] [place] [address] PCP - General Internal Medicine 02/26/14 03/24/14 [place] [address] [place] [address] PCP - General Family Practice 03/25/14 08/23/15 [place] [address] [place] [address] PCP - General Family Practice 08/24/15 [place] [address] [address] [address] PCP - Assigned PCP 11/28/15 11/23/18 [place] [address] [place] [address] Snow Removing Supervisor 11/05/13 01/16/19 documented as of this encounter
--- OUTSIDE RECORDS SUMMARY | 2024-08-02 23:51 | XMS_ITS | Referral Summary ---
Author Organization [facility] Address [address] [place] [address] Care Team Providers Care Tobacco Buyer Name Role Phone Shanelle [facility] MD Primary Care Provider Allergies Active Allergy Reactions Criticality Noted Date Comments Amoxicillin-Pot Clavulanate Diarrhea 08/12/2009 Severe diarrhea - c.diff Ciprofloxacin Other (See Comments) 05/17/2015 Broken tendon Oxycodone Other (See Comments) 10/17/2011 Hallucinations with oxycontin but can take oxycodone Tetracycline Swelling 05/01/2003 Minocin - feet swelled Medications Medication Sig Dispensed Refills Start Date End Date Status aspirin 81 MG tablet Take 1 tablet by mouth daily. Active Nutritional Supplements (SALMON OIL) CAPS Take 1,000 mg by mouth daily. Active Calcium Carbonate-Vitamin D (CALCIUM + D) 600-200 MG-UNIT per tablet Take 1 tablet by mouth daily. Active Multiple Vitamins-Minerals (CENTRUM SILVER) per tablet Take 1 tablet by mouth daily. Active albuterol (PROAIR HFA, PROVENTIL HFA, VENTOLIN HFA) 108 (90 BASE) MCG/ACT inhalerIndications:SO B (shortness of breath) Inhale 2 puffs into the lungs every 6 hours as needed 1 Inhaler 0 11/25/2013 Active ibuprofen (ADVIL,MOTRIN) 600 MG tabletIndications:Sharad tral hernia Take 1 tablet (600 mg) by mouth every 6 hours as needed for pain (mild) 30 tablet 0 04/02/2014 Active omeprazole 20 MG tabletIndications:Abd ominal pain, epigastric Take 1 tablet (20 mg) by mouth daily Take 30-60 minutes before a meal. 30 tablet 1 05/17/2015 Active irbesartan-hydrochlor othiazide (AVALIDE) 150-12.5 MG per tabletIndications:Jaden ign hypertension 2 tablets daily. 180 tablet 0 04/19/2016 Active simvastatin (ZOCOR) 20 MG tabletIndications:Hyp erlipidemia Take 1 tablet (20 mg) by mouth At Bedtime 90 tablet 0 04/19/2016 Active cefuroxime (CEFTIN) 250 MG tabletIndications:Dys uria,Myalgia Take 1 tablet (250 mg) by mouth 2 times daily 20 tablet 10/21/2017 Active Active Problems Problem Noted Date Diagnosed Date Lump or mass in breast 05/14/2015 DJD (degenerative joint disease) of knee 015 Major depressive disorder, single episode 2014 Overview: Problem list name updated by automated process. Provider to review COPD (chronic obstructive pulmonary disease) 04/2012 Hyperlipidemia LDL goal <160 04/10/2012 Pain in joint, shoulder region 08/10/2010 HTN (hypertension) 06/16/2008 Overview: (Problem list name updated by automated process. Provider to review and confirm.) Resolved Problems Problem Noted Date Diagnosed Date Resolved Date Advanced directives, counseling/discussion 10/17/2011 05/05/2024 Overview: PT states she brought copies before 10/03/11 surgery. Hyperlipidemia LDL goal <130 09/18/2010 04/10/2012 Major depressive disorder, single episode 05/23/2010 11/06/2011 Overview: Problem list name updated by automated process. Provider to review Other postprocedural status(V45.89) 11/05/2009 12/14/2009 Pain in joint, shoulder region 09/09/2009 12/14/2009 Hip pain 07/29/2009 09/01/2009 Other postprocedural status(V45.89) 07/29/2009 09/01/2009 Mixed hyperlipidemia 09/13/2006 014 Backache 06/30/2005 08/02/2005 Overview: Problem list name updated by automated process. Provider to review iamSPINAL STENOSIS-LUMBAR 06/30/2005 Immunizations Name Administration Dates Next Due Influenza (IIV3) PF 08/15/2014, 3,07/31/2012,2010,10/10/2004 Influenza Vaccine, 6+MO IM (QUADRIVALENT W/PRESERVATIVES) 08/16/2015 Pneumococcal 23 valent 07/31/2012,07/11/2000 TD,PF 7+ (Tenivac) 05/20/2009 Social History Tobacco Use Types Packs/Day Years Used Date Smoking Tobacco: Never Smokeless Tobacco: Never Alcohol Use Standard Drinks/Week Comments Yes 0 (1 standard drink = 0.6 oz pur e alcohol) OCC Adolescent Education Answer Date Record ed Getting School Help Needed Not on file 09/02 Sex and Gender Information Value Date Recorded Sex Assigned at Female 12/30/2023 11:49 AM LITHOPONE CHARGER Gender Identity Female 12/30/2023 11:49 AM LITHOPONE CHARGER Sexual Orientation Choose not to disclose 2023 11:49 AM LITHOPONE CHARGER Last Filed Vital Signs Vital Sign Reading Time Taken Comments Blood Pressure 100/72 10/21/2017 2:15 PM LITHOPONE CHARGER Pulse 63 10/21/2017 2:15 PM LITHOPONE CHARGER Temperature 36.5 ??C (97.7 ??F) 10/21/2017 2:15 PM CS T Respiratory Rate 16 05/17/2015 8:04 AM CDT Oxygen Saturation 97% 10/21/2017 2:15 PM LITHOPONE CHARGER Inhaled Oxygen Concentration - - Weight 90.7 kg (200 lb) 11/20/2015 9:29 AM LITHOPONE CHARGER Height 156.8 cm (5' 1.75) 11/20/2015 9:29 AM CS T Body Mass Index 36.88 11/20/2015 9:29 AM LITHOPONE CHARGER Plan of Treatment Not on file Medical Devices Implanted Type Area Vessel Traffic Officer Device Identifier Shelf Expiration Date Model / Serial / Lot Imp Comp Shoulder Glenoid 5 [id number] Implanted:Qty : 1 on 10/03/2011 at [facility] Left: Shoulder [employer] 07/18/2016 [id number] / / [id number] Bone Cement Simplex Full Dose [id number] Implanted:Qty : 1 on 10/03/2011 at [facility] Left: Shoulder [employer] 08/18/2013 [id number] / / [id number] Imp Stem Humeral Strk 11mm [id number] Implanted:Qty : 1 on 10/03/2011 at [facility] Left: Shoulder [employer] 10/18/2015 [id number] / / [id number] Imp Head Humeral Strk [id number] Implanted:Qty : 1 on 10/03/2011 at [facility] Left: Shoulder [employer] 04/18/2016 [id number] / / [id number] Mesh Ventralex Hernia 2.5 [place] Med W/Strap [id number] Implanted:Qty : 1 on 04/02/2014 by Kiah Tamayo MD at [facility] N/A: Umbilical [employer]-DA[employer] 02/06/2016 [id number] / / [id number] Procedures Procedure Name Priority Date/Time Associated Diagnosis Comments LIPID REFLEX TO DIRECT LDL PANEL Routine 05/13/2015 6:55 PM CDT Hyperlipidemia HC SPIROMETRY, BREATH CAPACITY Routine 10/02/2011 Routine medical exam DEXA, SKELETAL WITH VFA Routine 08/23/2010 Absence of menstruation from Last 3 Months or Most Recently Relevant to Health Maintenance Results * (ABNORMAL) Lipid panel reflex to direct LDL (05/13/2015 6:55 PM CDT) Cholesterol 234(H) <200 mg/dL [facility] Comment: LDL Cholesterol is the primary guide to therapy. The NCEP recommends further evaluation of: patients with cholesterol greater than 200 mg/dL if additional risk factors are present, cholesterol greater than 240 mg/dL, triglycerides greater than 150 mg/dL, or HDL less than 40 mg/dL. Triglycerides 255(H) 0 - 150 mg/dL [facility] Comment:Non Fasting HDL Cholesterol 60 >50 mg/dL [facility] LDL Cholesterol Calculated 123 0 - 129 mg/dL [facility] Comment: LDL Cholesterol is the primary guide to therapy: LDL-cholesterol goal in high risk patients is <100 mg/dL and in very high risk patients is <70 mg/dL. VLDL-Cholesterol 51(H) 0 - 30 mg/dL [facility] Cholesterol/HDL Ratio 3.9 0.0 - 5.0 [facility] Blood specimen (specimen) 05/13/2015 6:55 PM CDT 05/13/2015 6:56 PM CDT Amina [facility] MD LAB - BLOOD ORDERABL ES [facility] [address] [place] [address] * Spirometry, Breathing Capacity: Normal Order, Clinic performed (10/02/2011) Pipe Husain MD PROCEDURES * (ABNORMAL) DEXA, SKELETAL WITH VFA (08/23/2010) Anatomical Region Laterality Modality Other Impressions 08/23/2010 BONE DENSITOMETRY WITH LATERAL VETEBRAL ASSESSMENT [facility] August 23, 2010 PATIENT: ??Kaia Estrella CHART: [id number] : ??1935 AGE: ??74 year old SEX: ??female REFERRING PHYSICIAN: ??Pipe Husain M.D., ?? PROCEDURE: ??Bone density scanning was performed using DEXA technology performed on a [employer] Scanner. ??Reporting is completed in the form of a T-score. ??The T-score represents the standard deviation from peak bone mass based on a young healthy adult. Crm Analyst performing scan: ??Regina London REFERENCE T-SCORES: ? Normal ? Greater than -1.0 ? Osteopenia ?-1.0 to -2.5 ? Osteoporosis ?? Less than -2.5 ? INDICATIONS: ??Post-menopausal, Female > 65 years old, Family history of osteoporosis CURRENT TREATMENT: ??Calcium with Vitamin D FINDINGS: ?Lumbar Spine L1-L4: ??T-score 0.7 ?Left Forearm Radius 33% T-score -1.1 COMMENTS: Pt.has had bilateral hip replacements ? Comparison is performed to previous DEXA performed on a [facility] Excell on 09/09/2002. Electronically filed by Regina London 08/23/2010 ??4:56 PM Comparisons from different scanners that have not been cross calibrated, are not necessarily valid. Such a comparison has been performed here; one should interpret with caution. When compared with a scan dated 2001 and ??allowing for standardization calculations, there is suggestion of no significant change of the lumbar spine. Comparisons are not necessarily valid when precision within the machine has not been determined. Such a comparison has been performed here; one should interpret with caution. In the interim, allowing for standardization calculations, there is suggestion of a possible trend towards improvement of the lumbar spine when compared with the scan in 2007 IMPRESSION: Osteopenia Degenerative changes of the spine The current NOF Guidelines recommend treatment for patients with prior fragility fracture, T-score -2.5 or below, or 10 year risk of any major osteoporotic fracture >20% or 10 year risk of hip fracture >3%, as calculated using the FRAX calculator (www.shef.ac.uk/FRAX or you can google FRAX). ?? Based on these guidelines, treatment is not recommended for this patient. This is meant as an aid to clinical decision making; one must still use clinical judgement. Recommendations include ensuring adequate Calcium (1500 mg/d) and Vitamin D (800-1000 IU/d). Follow up can be considered within three years. For patients eligible for Medicare, routine testing is allowed once every two years. The testing frequency can be increased to one year for patients who have rapidly progressing disease, those who are receiving or discontinuing medical therapy to restore bone mass, or have additional risk factors. Mayela Nunez M.D. Electronically signed VERTEBRAL FRACTURE ASSESSMENT REPORT [facility] X-RAY [id number] [facility] [address] 2010 Patient: Kaia Estrella Chart: [id number] Date of : 1935 Age: [age] year old Sex: female Referring provider: Pipe Husain M.D. Procedure: Vertebral fracture assessment was performed in the lateral decubitus position using a [employer] densitometer. Positioning is satisfactory Crm Analyst performing scan: Regina London Confounding factors: Arthritis/degenerative disc disease and rib shadows The VFA scan was interpretable from T10 to L4. Indications: Age (female>65) Findings: Using the semi-quantitative analysis of Asha there was evidence of no spinal deformity Impression: Kaia Estrella has no vertebral fractures identified on the VFA. LVA scan read and electronically signed by Mayela Nunez M.D. Pipe Husain MD SPECIAL IMAGING STUD IES from Last 3 Months or Most Recently Relevant to Health Maintenance Care Teams Tobacco Buyer Relationship Specialty Start Date End Date Shanelle [facility] MD PCP - General Family Practice 08/24/15
--- OUTSIDE RECORDS SUMMARY | 2024-08-02 23:51 | XMS_ITS | Encounter Summary ---
Author Organization [facility] Address [address] [place] [address] Care Team Providers Care Manager Technical Services Name Role Phone Pipe Husain MD Primary Care Provider [phone] Billie Barnes RN Unavailable [phone] Karen Wise MD Primary Care Provider [phone] Amina Rivera MD Primary Care Provider [phone] Shanelle [facility] MD Primary Care Provider Shanelle [facility] MD Unavailable [phone] Encounter Details Date Type Department Care Team (Late st Contact Info) Description 03/20/2013 Telephone [facility] [address] [place] [address] [place] [address] [place] [address] Social History Tobacco Use Types Packs/Day Years Used Date Smoking Tobacco: Never Smokeless Tobacco: Never Alcohol Use Standard Drinks/Week Comments No 0 (1 standard drink = 0.6 oz pur e alcohol) Sex and Gender Information Value Date Recorded Sex Assigned at Female 12/30/2023 11:49 AM LICENSED OCCUPATIONAL THERAPY ASSISTANT Gender Identity Female 12/30/2023 11:49 AM LICENSED OCCUPATIONAL THERAPY ASSISTANT Sexual Orientation Choose not to disclose 2023 11:49 AM LICENSED OCCUPATIONAL THERAPY ASSISTANT documented as of this encounter Miscellaneous Notes * Telephone Encounter - Chastity Lenz RN - 03/20/2013 3:03 PM CDT Spoke with patient regarding results of Right breast US bx; single duct with low grade atypical epithelial cells Results were reviewed by the Radiologist who performed this biopsy. Recommended follow up: surgical consult. Scheduled 03/[address] Tamayo All pt questions were answered, and my phone number was provided for any future needs. Chastity Lenz RN Nurse Navigator [facility] documented in this encounter Plan of Treatment Not on file documented as of this encounter Visit Diagnoses Not on filedocumented in this encounter Care Teams Manager Technical Services Relationship Specialty [place] [address] [place] [address] PCP - General 09/09/02 02/25/14 [place] [address] [place] [address] PCP - General Internal Medicine 02/26/14 03/24/14 [place] [address] [place] [address] PCP - General Family Practice 03/25/14 08/23/15 [place] [address] [place] [address] PCP - General Family Practice 08/24/15 [place] [address] [address] [address] PCP - Assigned PCP 11/28/15 11/23/18 Billie Barnes, MERNA [address] [place] [address] Sccm Administrator 11/05/13 01/16/19 documented as of this encounter
--- OUTSIDE RECORDS SUMMARY | 2024-08-02 23:51 | XMS_ITS | Clinical Summary ---
Author Organization [place] Address [address] [place] [address] Care Team Providers Care Cloth Baler Name Role Phone Shanelle Reno MD Primary [...] 23 valent 07/31/2012,07/11/2000 TD,PF 7+ (Tenivac) 05/20/2009 Family History Medical History Relation Comments Hypertension Brother Gynecology Daughter 1 Gallbladder Disease Daughter 2 Gallbladder Disease Mother Diabetes Paternal Grandmother Aneurysm Sister 2 C.A.D. 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 Gender Identity Female 12/30/2023 11:49 AM VARNISHING UNIT OPERATOR Sexual Orientation Choose not to disclose 2023 11:49 AM VARNISHING UNIT OPERATOR Last Filed Vital Signs Vital Sign Reading Time Taken Comments Blood Pressure 100/72 10/21/2017 2:15 PM VARNISHING UNIT OPERATOR Pulse 63 10/21/2017 2:15 PM VARNISHING UNIT OPERATOR Temperature 36.5 ??C (97.7 ??F) 10/21/2017 2:15 PM CS T Respiratory Rate 16 05/17/2015 8:04 AM CDT Oxygen Saturation 97% 10/21/2017 2:15 PM VARNISHING UNIT OPERATOR Inhaled Oxygen Concentration - - Weight 90.7 kg (200 lb) 11/20/2015 9:29 AM VARNISHING UNIT OPERATOR Height 156.8 cm (5' 1.75) 11/20/2015 9:29 AM CS T Body Mass Index 36.88 11/20/2015 9:29 AM VARNISHING UNIT OPERATOR Plan of Treatment Health Maintenance Due Date Last Done Comments ANNUAL REVIEW OF HM ORDERS 1935 DEPRESSION ACTION PLAN 1935 PHQ-9 1935 ZOSTER IMMUNIZATION (1 of 2) 1986 MEDICARE ANNUAL WELLNESS VISIT 08/02/2011 08/02/2010, 10/21/2007, 10/02/2006 RSV VACCINE (1 - 1-dose 75+ series) 2011 Pneumococcal Vaccine: 65+ Years (2 of 2 - PCV) 07/31/2013 07/31/2012, 07/11/2000 FALL RISK ASSESSMENT 05/13/2016 05/13/2015, 09/17/20 12 LIPID 05/13/2016 05/13/2015, 11/2013, 12/01/2013, Additional history exists ADVANCE CARE PLANNING 03/26/2018 03/26/2013, 011 DTAP/TDAP/TD IMMUNIZATION (1 - Tdap) 05/20/2019 05/19/2019, 05/20/2009 COVID-19 Vaccine ( season) 2024 INFLUENZA VACCINE (#1) 2024 3, 08/22/2022, 08/21/2018, Additional history exists DEXA 08/23/2025 08/23/2010, 11/2007, 10/02/2006, Additional history exists SPIROMETRY Completed 10/02/2011, 12/15/2003 COPD ACTION PLAN Completed 05/13/2015, 03/25/2014 HPV IMMUNIZATION Aged Out No longer e ligible based on patient's age to complete this topic MENINGITIS IMMUNIZATION Aged Out No l onger eligible based on patient's age to complete this topic RSV MONOCLONAL ANTIBODY Aged Out No l onger eligible based on patient's age to complete this topic Medical Devices Implanted Type Area Wet Primer Powder Blender Device Identifier Shelf Expiration Date Model / Serial / Lot Imp Comp Shoulder Glenoid 5 [id number] Implanted:Qty : 1 on 10/03/2011 at [facility] Left: Shoulder [employer] 07/18/2016 [id number] / / [id number] Bone Cement Simplex Full Dose [id number] Implanted:Qty : 1 on 10/03/2011 at [facility] Left: Shoulder [employer] 08/18/2013 [id number] / / [id number] Imp Stem Humeral Strk 11mm [id number] Implanted:Qty : 1 on 10/03/2011 at [facility] Left: Shoulder [employer] 10/18/2015 [id number] / / [id number] Imp Head Humeral Strk [id number] Implanted:Qty : 1 on 10/03/2011 at [facility] Left: Shoulder [employer] 04/18/2016 [id number] / / [id number] Mesh Ventralex Hernia 2.5 Cantil Med W/Strap [id number] Implanted:Qty : 1 on 04/02/2014 by Kiah Tamayo MD at [facility] N/A: Umbilical [employer]-DAVOL 02/06/2016 [id number] / / [id number] Procedures Procedure Name Priority Date/Time Associated Diagnosis [...] 6:55 PM CDT) Cholesterol 234(H) <200 mg/dL [facility] Comment: LDL Cholesterol is the primary guide to therapy. The NCEP recommends further evaluation of: patients with cholesterol greater than 200 mg/dL if additional risk factors are present, cholesterol greater than 240 mg/dL, triglycerides greater than 150 mg/dL, or HDL less than 40 mg/dL. Triglycerides 255(H) 0 - 150 mg/dL [facility] Comment:Non Fasting HDL Cholesterol 60 >50 mg/dL [facility] LDL Cholesterol Calculated 123 0 - 129 mg/dL [facility] Comment: LDL Cholesterol is the primary guide to therapy: LDL-cholesterol goal in high risk patients is <100 mg/dL and in very high risk patients is <70 mg/dL. VLDL-Cholesterol 51(H) 0 - 30 mg/dL [facility] Cholesterol/HDL Ratio 3.9 0.0 - 5.0 [facility] Blood specimen (specimen) 05/13/2015 6:55 PM CDT 05/13/2015 6:56 PM CDT Amina Rivera MD LAB - BLOOD ORDERABL ES [facility] [address] [place] [address] * Spirometry, Breathing Capacity: Normal Order, Clinic performed (10/02/2011) Pipe Husain MD PROCEDURES * (ABNORMAL) DEXA, SKELETAL WITH VFA (08/23/2010) Anatomical Region Laterality Modality Other Impressions 08/23/2010 BONE DENSITOMETRY WITH LATERAL VETEBRAL ASSESSMENT [facility] August 23, 2010 PATIENT: ??Kaia Estrella CHART: [id number] : ??1935 AGE: ??74 year old SEX: ??female REFERRING PHYSICIAN: ??Pipe Husain M.D., ?? PROCEDURE: ??Bone density scanning was performed using DEXA technology performed on a [employer] Scanner. ??Reporting is completed in the form of a T-score. ??The T-score represents the standard deviation from peak bone mass based on a young healthy adult. Apparel Sales Associate performing scan: ??Regina London REFERENCE T-SCORES: ? [...] performed to previous DEXA performed on a [facility] on 09/09/2002. Electronically filed by Regina London [...] M.D. Electronically signed VERTEBRAL FRACTURE ASSESSMENT REPORT [facility] X-RAY [id number] [facility] [id number] 2010 Patient: Kaia Estrella Chart: [id number] Date of : 1935 Age: [age] year old Sex: female Referring provider: Pipe Husani M.D. Procedure: Vertebral fracture assessment was performed in the lateral decubitus position using a Lunar Prodigy densitometer. Positioning is satisfactory Apparel Sales Associate performing scan: Regina London Confounding factors: Arthritis/degenerative disc disease and rib shadows The VFA scan was interpretable from T10 to L4. Indications: Age (female>65) Findings: Using the semi-quantitative analysis of Genelinor there was evidence of no spinal deformity Impression: Kaia Estrella has no vertebral fractures identified on the VFA. LVA scan read and electronically signed by Mayela Nunez M.D. Pipe Husain MD SPECIAL IMAGING STUD IES from Last 3 Months or Most Recently Relevant to Health Maintenance Care Teams Cloth Baler Relationship Specialty Start Date End Date Shanelle Reno MD PCP - General Family Practice 08/24/15
== END 2024-07-25 12:46 | disposition home or self-care (01) ==
LOC: NFLDREF 08-02 23:47
PROVIDERS: PCP Nurse Practitioner Family; Referring Provider Nurse Practitioner Family; Visit Provider Dermatology
DX: R32 Unspecified urinary incontinence (principal); E11.9 Type 2 diabetes mellitus without complications
CPT/HCPCS: 81001; 82043; 82570; 87086

== ENCOUNTER 2025-02-03 13:02 | Outpatient (CLI) | payer MEDICARE, SELFPAY | END 2025-02-03 13:03 | disposition home or self-care (01) | PROVIDERS: PCP Nurse Practitioner Family; Visit Provider Nurse Practitioner Family | DX: Z01.818 Encounter for other preprocedural examination (principal); I10 Essential (primary) hypertension; E11.9 Type 2 diabetes mellitus without complications | CPT/HCPCS: 80053; 85025 ==

== ENCOUNTER 2025-04-08 13:52 | Emergency (ER) | payer MEDICARE, SELFPAY ==
--- OUTSIDE RECORDS SUMMARY | 2025-02-24 10:00 | XMS_ITS | Encounter Summary ---
Author Organization [facility] Address [address] [place] [address] Care Team Providers Care Hand Cell Tuber Name Role Phone None Reported, Pcp Primary Care Provider Unavail able Reason for Visit * Reason Comments Post-op Sutures removed * Outpatient (Routine) - Closed Specialty Diagnoses / Procedures Referred By Fermín chan Referred To Contact Orthopedic Surgery Michael Díaz M.D. [address] [place] [address] Phone: tel: fax: [facility] Region Referral ID Status Reason Start Date Expiration Date Visits Re quested Visits Authorized [id number] Closed 01/06/2025 07/08/2026 1 1 Encounter Details Date Type Department Care Team (Latest Contact Info) Description 02/24/2025 10:00 AM CDT Office Visit Department of Orthopedic Surgery in [address] [phone] Erlinda March APRN, C.N.P., D.N.P. [address] [place] [address] Follow Up Examination Postoperative Visit (Primary Dx) Discharge Disposition: Home or Self Care Social History Tobacco Use Types Packs/Day Years Used Date Smoking Tobacco: Never Smokeless Tobacco: Never Alcohol Use Standard Drinks/Week Comments Not Currently 0 (1 standard drink = 0.6 oz pur e alcohol) [facility] Utilities Answer Date Recorded In the past 12 months has e [employer], [employer] [place], oil, or water [employer] threatened to shut off services in your [...] your living situation today? 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 - 02/24/2025 10:00 AM CDT Kaia is a very pleasant 89-year-old who is 2 weeks status post right elbow arthroscopy, loose body removal, right elbow posterior arthrotomy with loose body removal and posterior olecranon spur excision. She denies any signs or symptoms of infection. She states that she had some discomfort but mostly noted where the bruising is. She has not worked with physical therapy and does not feel she needs to his she feels motion of her elbow is excellent she does not have full extension but does notknow if she had that before surgery anyway she is not having any locking or clicking as she had before. Physical exam-right elbow surgical incision is healing well there is no signs of infection. It is well approximated there is no drainage noted no particular redness. She has excellent sensation distally she lacks full extension by 10?? and flexes without difficulty. Diagnostic studies reviewed her intraoperative photos. Impression and plan-Kaia is a very pleasant 89-year-old who is status post right elbow surgery as noted above. We discussed watching for signs symptoms of infection report if any occur. We discussed her range of motion and continuing to move her elbow. We reviewed incisional care and she will report if she has any new signs or symptoms of infection or concerns. Questions were answered documented in this encounter Plan of Treatment Not on file documented as of this encounter Visit Diagnoses Diagnosis Follow Up Examination Postoperative Visit- Primary documented in this encounter Care Teams Hand Cell Tuber Relationship Specialty Start Date End Date None Reported, Pcp PCP - General Family Medicine 02/27/24 documented as of this encounter
[2025-04-08] VITALS (33 sets, daily range): BP systolic 78–119; BP diastolic 30–77; PULSE 63–109; RESP 9–28; TEMP 36.8; O2SAT 92–99; BMI 33.3
--- NOTE | 2025-04-08 14:25 | CRLHL7_ITS ---
For Patients: As a result of the Century Cures Act, medical imaging exams and procedure reports are released immediately into your electronic medical record. You may view this report before your referring provider. If you have questions, please contact your health care provider. INDICATION: Shortness of breath. TECHNIQUE: CT chest pulmonary angiogram acquired with 95 cc of Isovue 370 IV contrast. Sagittal, coronal and maximum intensity projection reformatted images submitted for review. COMPARISON: None. FINDINGS: No evidence of pulmonary embolus. Aortic atherosclerosis and tortuosity. Thoracic aorta is normal in caliber. Mild cardiomegaly. Lipomatous hypertrophy of the intra-atrial septum. No pathologic lymphadenopathy. No pleural or pericardial effusions. Soft tissues of the thoracic wall are unremarkable. No pneumothorax. Central airways are patent. Motion artifact with mild bilateral subsegmental atelectasis. Lungs are otherwise clear. Cholelithiasis. No acute abnormality in the visualized upper abdomen. Degenerative changes of the spine. No acute or suspicious osseous abnormality. IMPRESSION: No evidence of pulmonary embolus or other acute abnormality in the chest. Dictated by Dashawn Salazar MD @ 04/08/2025 4:01:05 PM Please note that all CT scans at this facility use dose modulation, iterative reconstruction, and/or weight-based dosing when appropriate to reduce radiation dose to as low as reasonably achievable. Dictated by: Dashawn Salazar MD @ 04/08/2025 16:01:17 (Electronically Signed)
--- NOTE | 2025-04-08 14:30 | ED.GENADULT ---
HPI - General Adult General Date Seen: 04/08/25 Chief complaint: Headache/Migraine Stated complaint: SOB, Headache, Vision Impaired Time Seen by Provider: 04/08/25 14:05 Source: patient Mode of arrival: ambulatory Limitations: no limitations History of Present Illness HPI narrative: Patient is an 89-year-old female with a history of a DVT, PE, diabetes, hypertension presenting to the emergency department for shortness of breath, lightheadedness. States yesterday around 22:00 last night she was developing lightheadedness, headache and shortness of breath. Was also feeling very nauseated and vomited multiple times. The nausea is since resolved but she still having the lightheadedness and shortness of breath. States it feels like she is going to pass out and her vision is going in and out occasionally. Symptoms are worse when she gets up. Does have a history of vertigo and states this feels different. Is not having any associated chest pain. Denies having shortness of breath like this before but does have a history of PE. Is not currently on any blood thinners. No history of COPD or asthma that she is aware of. Has not had any fevers, chills, cough, congestion. No sick contacts. Was recently and [place] for a month visiting her son. Return back home 1 week ago. Has not noticed any lower extremity swelling. Related Data Home Medications ?Medication ?Instructions ?Recorded ?Confirmed calcium 600 mg (as 1 tab PO DAILY 04/25/23 02/03/25 carbonate)-vitamin D3 20 mcg (800 unit) tablet fluorouracil 0.5 % topical cream 1 applic topical QWEEK 02/18/24 02/03/25 kvuspwobnlqd-kyeatcuh-vdccsh tablet 1 tab PO QDAY 02/18/24 02/03/25 omega-3 fatty acids 500 mg PO Q OTHER DAY 02/18/24 02/03/25 celecoxib 200 mg capsule 200 mg PO DAILY 05/29/24 02/03/25 Previous Rx's ?Medication ?Instructions ?Recorded glimepiride 4 mg tablet 4 mg PO BID #180 tabs 07/24/24 potassium chloride 10 mEq 10 meq PO QDAY #90 caps 07/24/24 capsule,extended release simvastatin 20 mg tablet 20 mg PO HS #90 tabs 07/24/24 irbesartan 150 2 tab PO DAILY #180 tabs 01/30/25 mg-hydrochlorothiazide 12.5 mg tablet Allergies Allergy/AdvReac Type Severity Reaction Status Date / Time ciprofloxacin Allergy Severe torn tendon Verified 04/08/25 15:25 clavulanic acid (From Allergy Mild Verified 04/08/25 15:25 Augmentin) tetracycline Allergy Mild swollen Verified 04/08/25 15:25 feet hydrocodone (From [place]) Allergy Unknown Verified 04/08/25 15:25 metformin AdvReac Mild GI upset Verified 04/08/25 15:25 Review of Systems Status of ROS: Reports: 10 or more systems reviewed and unremarkable except as noted in History and below [facility] Medical History 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, initial encounter (ICD-10) Atrophic vulvovaginitis ?N95.2 - Postmenopausal atrophic vaginitis (ICD-10) Tension headache ?G44.209 - Tension-type headache, unspecified, not intractable (ICD-10) History of hypothyroidism ?Z86.39 - Personal history of other endocrine, nutritional and metabolic disease (ICD-10) History of herpes zoster ?Z86.19 - Personal history of other infectious and parasitic diseases (ICD-10) History of Clostridium difficile colitis ?Z86.19 - Personal history of other infectious and parasitic diseases (ICD-10) History of benign breast biopsy ?Z98.890 - Other specified postprocedural states (ICD-10) Hammertoe ?M20.40 - Other hammer toe(s) (acquired), unspecified foot (ICD-10) Surgical History History of eyelid surgery ?Z98.890 - Other specified postprocedural states (ICD-10) H/O breast biopsy ?Z98.890 - Other specified postprocedural states (ICD-10) Status post cataract extraction ?Z98.49 - Cataract extraction status, unspecified eye (ICD-10) History of ventral hernia repair ?Z98.890 - Other specified postprocedural states (ICD-10) ?Z87.19 - Personal history of other diseases of the digestive system (ICD-10) History of total shoulder replacement ?Z96.619 - Presence of unspecified artificial shoulder joint (ICD-10) History of total hip replacement ?Z96.649 - Presence of unspecified artificial hip joint (ICD-10) History of tonsillectomy ?Z90.89 - Acquired absence of other organs (ICD-10) History of hysterectomy ?Z90.710 - Acquired absence of both cervix and uterus (ICD-10) History of bunionectomy of both great toes ?Z98.890 - Other specified postprocedural states (ICD-10) Family History Son Cerebral hemorrhage Diabetes Kidney stone Son Diabetes Coronary artery disease Kidney stone Son Diabetes Kidney failure Mother Brain aneurysm Social History Narrative: Lives with her daughter, Ailyn, and her son who has had a stroke 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: never true In the past 12 mos, the food you bought just didn't last and you didn't have money to buy more?: never true Highest level of school completed/degree received: some college, no degree Smoking Status: Never smoker How often do you have a drink containing alcohol: monthly or less How many standard drinks containing alcohol do you have on a typical day: 1 or 2 How often do you have six or more drinks on one occasion: Never AUDIT-C Alcohol total score: 1 Caffeine: Yes (Daily coffee) How often does anyone, including family, friends and others, physically hurt you: never How often does anyone, including family, friends and others, insult or talk down to you: never How often does anyone, including family, friends and others, threaten you with harm: never How often does anyone, including family, friends and others, scream or curse at you: never service: No Exam Narrative: Exam Narrative: Const: Well-nourished, Well-developed, in mild distress Eyes: PERRL, no conjunctival injection, and symmetrical lids HENT: Atraumatic external nose and ears. Moist mucous membranes. Neck: Symmetric, trachea midline, No thyromegaly. CVS: RRR, No murmurs or gallops. Peripheral pulses 2+ and equal in all extremities RESP: Unlabored respiratory effort. Clear to auscultation bilaterally. GI: Nontender/Nondistended, No rebound or guarding. MSK:Extremities w/o deformity, Normal Active ROM Skin: Warm, Dry. No rashes or lesions. Neuro: Normal Muscle tone, No focal neurological deficits. Psych: Awake, Alert, & Oriented x3. Appropriate mood and affect. Const: Vital Signs, click to edit/add: Vital Signs - 24 hr 04/08/25 13:55 04/08/25 14:15 04/08/25 14:17 Temperature 98.3 F Pulse Rate 96 104 H Pulse Rate [Pulse Oximeter] 109 H Pulse Rate [orthos tatic lying Pulse Oximeter] Pulse Rate [orthos tatic sitting Puls e Oximeter] Pulse Rate [orthos tatic standing Pul se Oximeter] Respiratory Rate 28 H 19 14 Blood Pressure 82/52 L Blood Pressure [Le ft Upper Arm] 93/77 Blood Pressure [or thostatic lying Ri ght Arm] Blood Pressure [or thostatic sitting Right Arm] Blood Pressure [or thostatic standing Right Arm] Pulse Oximetry 95 98 99 Oxygen Delivery Me thod Room Air 04/08/25 14:18 04/08/25 14:19 04/08/25 14:30 Temperature Pulse Rate 101 H 104 H 88 Pulse Rate [Pulse Oximeter] Pulse Rate [orthos tatic lying Pulse Oximeter] Pulse Rate [orthos tatic sitting Puls e Oximeter] Pulse Rate [orthos tatic standing Pul se Oximeter] Respiratory Rate 20 19 Blood Pressure 82/48 L Blood Pressure [Le ft Upper Arm] Blood Pressure [or thostatic lying Ri ght Arm] Blood Pressure [or thostatic sitting Right Arm] Blood Pressure [or thostatic standing Right Arm] Pulse Oximetry 98 97 93 Oxygen Delivery Me thod 04/08/25 14:32 04/08/25 14:43 04/08/25 14:45 Temperature Pulse Rate 96 91 90 Pulse Rate [Pulse Oximeter] Pulse Rate [orthos tatic lying Pulse Oximeter] Pulse Rate [orthos tatic sitting Puls e Oximeter] Pulse Rate [orthos tatic standing Pul se Oximeter] Respiratory Rate 17 Blood Pressure 89/54 L Blood Pressure [Le ft Upper Arm] Blood Pressure [or thostatic lying Ri ght Arm] Blood Pressure [or thostatic sitting Right Arm] Blood Pressure [or thostatic standing Right Arm] Pulse Oximetry 95 94 95 Oxygen Delivery Va thod 04/08/25 14:47 04/08/25 14:48 04/08/25 15:00 Temperature Pulse Rate 88 89 86 Pulse Rate [Pulse Oximeter] Pulse Rate [orthos tatic lying Pulse Oximeter] Pulse Rate [orthos tatic sitting Puls e Oximeter] Pulse Rate [orthos tatic standing Pul se Oximeter] Respiratory Rate 9 L 16 17 Blood Pressure 78/49 L Blood Pressure [Le ft Upper Arm] Blood Pressure [or thostatic lying Ri ght Arm] Blood Pressure [or thostatic sitting Right Arm] Blood Pressure [or thostatic standing Right Arm] Pulse Oximetry 92 92 93 Oxygen Delivery Va thod 04/08/25 15:02 04/08/25 15:03 04/08/25 15:15 Temperature Pulse Rate 88 86 81 Pulse Rate [Pulse Oximeter] Pulse Rate [orthos tatic lying Pulse Oximeter] Pulse Rate [orthos tatic sitting Puls e Oximeter] Pulse Rate [orthos tatic standing Pul se Oximeter] Respiratory Rate 22 Blood Pressure 80/30 L Blood Pressure [Le ft Upper Arm] Blood Pressure [or thostatic lying Ri ght Arm] Blood Pressure [or thostatic sitting Right Arm] Blood Pressure [or thostatic standing Right Arm] Pulse Oximetry 92 93 94 Oxygen Delivery Va thod 04/08/25 15:33 04/08/25 15:34 04/08/25 15:35 Temperature Pulse Rate 75 77 78 Pulse Rate [Pulse Oximeter] Pulse Rate [orthos tatic lying Pulse Oximeter] Pulse Rate [orthos tatic sitting Puls e Oximeter] Pulse Rate [orthos tatic standing Pul se Oximeter] Respiratory Rate 17 Blood Pressure 118/66 Blood Pressure [Le ft Upper Arm] Blood Pressure [or thostatic lying Ri ght Arm] Blood Pressure [or thostatic sitting Right Arm] Blood Pressure [or thostatic standing Right Arm] Pulse Oximetry 95 96 97 Oxygen Delivery Me thod 04/08/25 15:45 04/08/25 15:47 04/08/25 15:48 Temperature Pulse Rate 76 76 77 Pulse Rate [Pulse Oximeter] Pulse Rate [orthos tatic lying Pulse Oximeter] Pulse Rate [orthos tatic sitting Puls e Oximeter] Pulse Rate [orthos tatic standing Pul se Oximeter] Respiratory Rate 16 Blood Pressure 119/57 L Blood Pressure [Le ft Upper Arm] Blood Pressure [or thostatic lying Ri ght Arm] Blood Pressure [or thostatic sitting Right Arm] Blood Pressure [or thostatic standing Right Arm] Pulse Oximetry 96 98 97 Oxygen Delivery Va thod 04/08/25 16:00 04/08/25 16:01 04/08/25 16:15 Temperature Pulse Rate 65 63 67 Pulse Rate [Pulse Oximeter] Pulse Rate [orthos tatic lying Pulse Oximeter] Pulse Rate [orthos tatic sitting Puls e Oximeter] Pulse Rate [orthos tatic standing Pul se Oximeter] Respiratory Rate Blood Pressure 102/64 Blood Pressure [Le ft Upper Arm] Blood Pressure [or thostatic lying Ri ght Arm] Blood Pressure [or thostatic sitting Right Arm] Blood Pressure [or thostatic standing Right Arm] Pulse Oximetry 96 98 93 Oxygen Delivery Me thod 04/08/25 16:17 04/08/25 16:25 04/08/25 16:25 Temperature Pulse Rate 69 76 Pulse Rate [Pulse Oximeter] Pulse Rate [orthos tatic lying Pulse Oximeter] 65 Pulse Rate [orthos tatic sitting Puls e Oximeter] Pulse Rate [orthos tatic standing Pul se Oximeter] Respiratory Rate 16 Blood Pressure 100/50 L 103/59 L Blood Pressure [Le ft Upper Arm] Blood Pressure [or thostatic lying Ri ght Arm] 103/59 L Blood Pressure [or thostatic sitting Right Arm] Blood Pressure [or thostatic standing Right Arm] Pulse Oximetry 97 94 Oxygen Delivery Me thod 04/08/25 16:27 04/08/25 16:28 04/08/25 16:30 Temperature Pulse Rate 72 103 H 86 Pulse Rate [Pulse Oximeter] Pulse Rate [orthos tatic lying Pulse Oximeter] Pulse Rate [orthos tatic sitting Puls e Oximeter] Pulse Rate [orthos tatic standing Pul se Oximeter] Respiratory Rate 20 22 Blood Pressure 97/77 90/57 L Blood Pressure [Le ft Upper Arm] Blood Pressure [or thostatic lying Ri ght Arm] Blood Pressure [or thostatic sitting Right Arm] Blood Pressure [or thostatic standing Right Arm] Pulse Oximetry 96 Oxygen Delivery Me thod 04/08/25 16:32 04/08/25 16:33 04/08/25 16:39 Temperature Pulse Rate 80 79 Pulse Rate [Pulse Oximeter] Pulse Rate [orthos tatic lying Pulse Oximeter] Pulse Rate [orthos tatic sitting Puls e Oximeter] 80 Pulse Rate [orthos tatic standing Pul se Oximeter] Respiratory Rate Blood Pressure 119/73 Blood Pressure [Le ft Upper Arm] Blood Pressure [or thostatic lying Ri ght Arm] Blood Pressure [or thostatic sitting Right Arm] 97/77 Blood Pressure [or thostatic standing Right Arm] Pulse Oximetry 97 95 Oxygen Delivery Me thod 04/08/25 16:41 Temperature Pulse Rate Pulse Rate [Pulse Oximeter] Pulse Rate [orthos tatic lying Pulse Oximeter] Pulse Rate [orthos tatic sitting Puls e Oximeter] Pulse Rate [orthos tatic standing Pul se Oximeter] 102 H Respiratory Rate Blood Pressure Blood Pressure [Le ft Upper Arm] Blood Pressure [or thostatic lying Ri ght Arm] Blood Pressure [or thostatic sitting Right Arm] Blood Pressure [or thostatic standing Right Arm] 90/57 L Pulse Oximetry Oxygen Delivery Me thod Course Vital Signs Vital signs: Initial Vital Signs Temperature 98.3 F 04/08/25 13:55 Temperature Source Temporal Artery Scan 04/08/25 13:55 Pulse Rate 109 H 04/08/25 13:55 Respiratory Rate 28 H 04/08/25 13:55 Blood Pressure 93/77 04/08/25 13:55 Blood Pressure Mean 82 04/08/25 13:55 Blood Pressure Position Sitting 04/08/25 13:55 Pulse Oximetry 95 04/08/25 13:55 Oxygen Delivery Method Room Air 04/08/25 13:55 Vital Signs Temperature 98.3 F 04/08/25 13:55 Pulse Rate 109 H 04/08/25 13:55 Respiratory Rate 28 H 04/08/25 13:55 Blood Pressure 93/77 04/08/25 13:55 Pulse Oximetry 95 04/08/25 13:55 Oxygen Delivery Method Room Air 04/08/25 13:55 Temperature 98.3 F 04/08/25 13:55 Pulse Rate 102 H 04/08/25 16:41 Respiratory Rate 22 04/08/25 16:28 Blood Pressure 90/57 L 04/08/25 16:41 Pulse Oximetry 95 04/08/25 16:33 Oxygen Delivery Method Room Air 04/08/25 13:55 Medications Administered Medications: Discontinued Medications Generic Name Dose Route Start Last Admin Trade Name Freq PRN Reason Stop Dose Admin Lactated Ringer's 1,000 mls @ 1,000 mls/hr 04/08/25 14:54 04/08/25 14:59 Lactated Ringers 1000 Ml IV 04/08/25 15:53 1,000 mls/hr .Q1H ONE Administration Medical Decision Making MDM Narrative Medical decision making narrative: Patient is an 89-year-old female presenting for shortness of breath and lightheadedness. I believe the lightheadedness is likely associated with her shortness of breath. Also seem like her symptoms would get worse as she gets more anxious. The differential diagnosis of shortness of breath is broad and includes common etiologies such as COPD, asthma, pneumonia, viral syndrome, etc. More serious etiologies considered include PE, CHF, coronary artery disease, pneumothorax, aortic dissection, aortic aneurysm. Lungs sound clear and COPD or asthma seems unlikely. She does have a history of PE and will do a CTA to rule out that. This also helped look for signs of pneumothorax or pneumonia. When speaking to her she appears to be doing well until she starts getting herself worked up and then will start wheezing and become more tachycardic. When she calms down again those clinical findings resolve. Also order EKG, troponin, CBC, BMP, viral swabs, BNP, magnesium. Lab work returned showing no acute concerning abnormalities. She was having some episodes of hypotension but was asymptomatic at this time. She does states she is feeling dehydrated in a L fluids was given. She does have an elevated blood sugar at 301 but this is unlikely to be the cause of her symptoms. Her blood pressure improved significantly after the fluids. We did orthostatic blood pressures and her heart rate did go up quite a bit she was asymptomatic during this. I offered her another L of fluids which she declines. EKG shows no concerning finding. On my review vital signs are stable throughout time in in the emergency department. Her heart rate did eventually come down to the 70s after fluids. Oximetry stayed in the mid to high 90s. hospital monitor showed no concerning arrhythmias. This time she feels comfortable with discharge. Lab Data Labs: Lab Results 04/08/25 04/08/25 Range/Units 14:35 14:40 WBC 8.33 (4.50-11.00) K/uL RBC 5.11 (4.00-5.20) m/uL Hgb 15.1 (12.0-16.0) gm/dL Hct 44.8 (33.0-51.0) % MCV 88 (80-100) fL MCH 30 (26-34) pg MCHC 34 (32-36) gm/dL RDW Coeff of [place] 13.3 (11.5-15.5) % Plt Count 254 (140-440) K/uL Neut % (Auto) 66.8 (42.0-72.0) % Lymph % (Auto) 24.0 (20-44) % [place] % (Auto) 8.2 (0.0-11.0) % Eos % (Auto) 0.5 (0.0-7.0) % Baso % (Auto) 0.4 (0.0-3.0) % Neut # (Auto) 5.57 (1.7-7.0) K/uL Lymph # (Auto) 2.00 (0.90-2.90) K/uL [place] # (Auto) 0.70 (0.00-0.90) K/UL Eos # (Auto) 0.04 (0.00-0.50) K/uL Baso # (Auto) 0.03 (0.00-0.30) K/uL Abs Immat Gran (auto) 0.01 (0.00-0.30) K/uL Imm/Tot Granulo (auto) 0.1 % Sodium 135 (135-149) mmol/L Potassium 3.4 L (3.6-5.1) mmol/L Chloride 98 (96-114) mmol/L Carbon Dioxide 26 (20-32) mmol/L Anion Gap 11 (7-15) mEq/L BUN 45 H (7-30) mg/dL Creatinine 1.5 (0.5-1.5) mg/dL Estimated Creat Clear 20.50 Estimated GFR 33 ml/min Glucose 301 H (60-115) mg/dL Calcium 10.0 (8.4-10.6) mg/dL Magnesium 1.6 (1.5-2.6) mg/dL Troponin I < 0.01 (0.01-0.04) ng/mL NT-Pro-B Natriuret Pep 232 pg/mL SARS-CoV-2 (PCR) Negative SARS-CoV-2 (Negative) Influenza Type A (PCR) Negative PCR FLU A (Negative) Influenza Type B (PCR) Negative PCR FLU B (Negative) RSV (PCR) Negative PCR RSV (Negative) POC Creatinine 1.7 H (0.6-1.3) mg/dl Imaging Data CTA chest: Attestation: I have reviewed the pertinent imaging results. Radiologist's impression: No evidence of pulmonary embolus or other acute abnormality in the chest. Dictated by Dashawn Salazar MD @ 04/08/2025 4:01:05 PM Please note that all CT scans at this facility use dose modulation, iterative reconstruction, and/or weight-based dosing when appropriate to reduce radiation dose to as low as reasonably achievable. Dictated by: Dashawn Salazar MD @ 04/08/2025 16:01:17 ECG Data Attestation: I personally reviewed and interpreted this ECG as follows: Prior ECG tracings: not available for review Interpretation: Is normal sinus rhythm with rate of 98 beats per minute, the incomplete right bundle-branch block, normal intervals, left axis, no ST or T-wave abnormalities. He similar previous EKGs on file is Discharge Plan Discharge Clinical Impression: Dehydration Patient Disposition: Home, Self-Care Condition: Improved Instructions: Dehydration (ED) Additional Instructions: Is at this time I cannot say exactly what was causing nausea symptoms but he did appear to be dehydrated when he came in. Lab work and imaging shows no acute concerning findings. You did have a blood sugar of 301. Do recommend following up in primary care provider Prescriptions: No Action celecoxib 200 mg capsule 200 mg PO DAILY glimepiride 4 mg tablet 4 mg PO BID Qty: 180 3RF potassium chloride 10 mEq capsule, extended release 10 meq PO QDAY Qty: 90 3RF simvastatin 20 mg tablet 20 mg PO HS Qty: 90 3RF calcium carbonate-vitamin D3 600 mg-20 mcg (800 unit) tablet 1 tab PO DAILY omega-3 fatty acids Capsule 500 mg PO Q OTHER DAY fluorouracil 0.5 % cream 1 applic topical QWEEK dmyeknkusmwc-kxqktvmn-dylyzs Tablet 1 tab PO QDAY irbesartan-hydrochlorothiazide 150-12.5 mg tablet 2 tab PO DAILY Qty: 180 2RF Follow Up/Referrals: Kylah Gamble, BACK MAKER, BRAILLE TRANSCRIBER [Primary Care Provider, Family Practice] Stand Alone Forms: [employer] Info Instructions
[2025-04-08 14:52] LABS: Creatinine, Point-of-Care* 1.7 mg/dl (0.6-1.3)
[2025-04-08] MEDS: LACTATED RINGERS 1000 ML 1,000 ML IV (14:59)
[2025-04-08 15:00] LABS: Basophils Absolute Auto 0.03 K/uL (0.00-0.30); Basophils Percent Auto 0.4 % (0.0-3.0); Eosinophils Absolute Auto 0.04 K/uL (0.00-0.50); Eosinophils Percent Auto 0.5 % (0.0-7.0); Hematocrit 44.8 % (33.0-51.0); Hemoglobin* 15.1 gm/dL (12.0-16.0); Immature Granulocytes Abs Auto 0.01 K/uL (0.00-0.30); Immature Granulocytes Pct Auto 0.1 %; Mean Corpuscular HGB Conc 34 gm/dL (32-36); Mean Corpuscular Hemoglobin 30 pg (26-34); Mean Corpuscular Volume 88 fL (80-100); Monocytes Percent Auto 8.2 % (0.0-11.0); Neutrophils Absolute Auto 5.57 K/uL (1.7-7.0); Neutrophils Percent Auto 66.8 % (42.0-72.0); Platelet Count* 254 K/uL (140-440); RDW Coefficient of Variation % 13.3 % (11.5-15.5); Red Blood Count 5.11 m/uL (4.00-5.20); White Blood Count* 8.33 K/uL (4.50-11.00)
[2025-04-08 15:02] LABS: Slide Review Reflex No
[2025-04-08 15:05] LABS: Chloride* 98 mmol/L (96-114); Potassium* 3.4 mmol/L (3.6-5.1); Sodium* 135 mmol/L (135-149)
[2025-04-08 15:07] LABS: Blood Urea Nitrogen* 45 mg/dL (7-30); Creatinine* 1.5 mg/dL (0.5-1.5); Estimated Glomerular Filt Rate 33 ml/min
[2025-04-08 15:08] LABS: Anion Gap 11 mEq/L (7-15); Carbon Dioxide* 26 mmol/L (20-32); Glucose* 301 mg/dL (60-115); Magnesium* 1.6 mg/dL (1.5-2.6)
--- OUTSIDE RECORDS SUMMARY | 2025-04-08 15:20 | XMS_ITS | Encounter Summary ---
Author Organization [facility] Address [address] [place] [id number] Care Team Providers Care Beamer Helper Name Role Phone Pipe Husain MD Primary Care Provider [phone] Billie Barnes RN Unavailable [phone] Karen Wise MD Primary Care Provider Un available Amina Rievra MD Primary Care Provider [phone] Shanelle Reno MD Primary Care Provider Shanelle Reno MD Unavailable [phone] Reason for Visit * Reason Onset Date Comments Refill Request 12/13/2012 Spiriva Handihal er Refill Request 12/13/2012 Ventolin HFA inh aler Encounter Details Date Type Department Care Team (Late st Contact Info) Description 12/13/[address] [phone] Pipe Husain MD [address] [place] [id number] Refill Request (Spiriva Handihaler); Refill Request (Ventolin HFA inhaler) Social History Tobacco Use Types Packs/Day Years Used Date Smoking Tobacco: Never Smokeless Tobacco: Never Alcohol Use Standard Drinks/Week Comments No 0 (1 standard drink = 0.6 oz pur e alcohol) Comments No Sex and Gender Information Value Date Recorded Sex Assigned at Female 12/30/2023 11:49 AM SALES DEVELOPMENT CONSULTANT Legal Sex Female 3:19 AM SALES DEVELOPMENT CONSULTANT Gender Identity Female 12/30/2023 11:49 AM SALES DEVELOPMENT CONSULTANT Sexual Orientation Choose not to disclose 2023 11:49 AM SALES DEVELOPMENT CONSULTANT documented as of this encounter Miscellaneous Notes * Telephone Encounter - Amelie Raza RPH - 12/13/2012 10:58 AM CST Forwarding refill requests to provider fro review, both were ordered/refilled over a year ago. Does patient need SOB/Asthma/COPD f/u and/or spirometry? Amelie Raza, PharmD, [facility] [phone]] S DEVELOPMENT CONSULTANT * Telephone Encounter - Jeremy Flores - [...] of Last Spirometry Test: 10/02/2011 Jeremy Flores [facility] DEVELOPMENT CONSULTANT documented in this encounter Plan of Treatment Not on file documented as of this encounter Visit Diagnoses Diagnosis Other dyspnea and respiratory abnormality- Primary SOB (shortness of breath) Shortness of breath documented in this encounter Care Teams Beamer Helper Relationship Specialty [place] [address] [place] [address] PCP - General 09/09/02 02/25/14 [place] [address] [place] [address] PCP - General Internal Medicine 02/26/14 03/24/14 [place] [address] [place] [address] PCP - General Family Practice 03/25/14 08/23/15 [place] [address] [place] [address] PCP - General Family Practice 08/24/15 [place] [address] [facility] [place] [address] PCP - Assigned PCP 11/28/15 11/23/18 Billie Barnes, MERNA [address] [place] [address] [employer] Agent 11/05/13 01/16/19 documented as of this encounter
--- OUTSIDE RECORDS SUMMARY | 2025-04-08 15:20 | XMS_ITS | Encounter Summary ---
Author Organization [facility] Address [address] [place] [address]. [place] [address] Care Team Providers Care Ems Instructor Name Role Phone Pipe Husain MD Primary Care Provider Billie Barnes RN Unavailable [phone] Karen Wise MD Primary Care Provider Un available Amina Rivera MD Primary Care Provider [phone] Shanelle Reno MD Primary Care Provider Shanelle Reno MD Unavailable [phone] Reason for Visit * Reason Onset Date Comments Patient/info Update 02/09/2011 shoulder Encounter Details Date Type Department Care Team (Late st Contact Info) Description 02/09/2011 MyC Medical Advice [address] [address] [place] Hus[place] MD [id number] [place] [address] Patient/info Update (shoulder) Social History Tobacco Use Types Packs/Day Years Used Date Smoking Tobacco: Never Alcohol Use Standard Drinks/Week Comments No 0 (1 standard drink = 0.6 oz pur e alcohol) Comments No Sex and Gender Information Value Date Recorded Sex Assigned at Female 12/30/2023 11:49 AM GRINDING WHEEL FACER Legal Sex Female 3:19 AM GRINDING WHEEL FACER Gender Identity Female 12/30/2023 11:49 AM GRINDING WHEEL FACER Sexual Orientation Choose not to disclose 2023 11:49 AM GRINDING WHEEL FACER documented as of this encounter Plan of Treatment Not on file documented as of this encounter Visit Diagnoses Not on filedocumented in this encounter Care Teams Ems Instructor Relationship Specialty [place] [address] [facility] [place] [address] PCP - General 09/09/02 02/25/14 [place] [address] [facility] [place] [address] PCP - General Internal Medicine 02/26/14 03/24/14 [place] [address] [place] [address] PCP - General Family Practice 03/25/14 08/23/15 [place] [address] [place] [address] PCP - General Family Practice 08/24/15 [place] [address] [place] [address] PCP - Assigned PCP 11/28/15 11/23/18 Billie Barnes, MERNA [address] [facility] [place] [address] Deposition Operator 11/05/13 01/16/19 documented as of this encounter
--- OUTSIDE RECORDS SUMMARY | 2025-04-08 15:20 | XMS_ITS | Clinical Summary ---
Author Organization [facility] Address [address] [place] [id number] Care Team Providers Care Gin Pole Operator Name Role Phone Shanelle Reno MD Primary Care Provider Allergies Active Allergy Reactions Criticality Noted Date Comments Amoxicillin-Pot Clavulanate Diarrhea 08/12/2009 Severe diarrhea - c.diff Ciprofloxacin Other (See Comments) 05/17/2015 Broken tendon Oxycodone Other (See Comments) 10/17/2011 Hallucinations with oxycontin but can take oxycodone Tetracycline Swelling 05/01/2003 Minocin - feet swelled Medications aspirin 81 MG tablet Take 1 tablet [...] HFA, VENTOLIN HFA) 108 (90 BASE) MCG/ACT inhalerIndication s:SOB (shortness of breath) Inhale 2 puffs into the lungs every 6 hours as needed 1 Inhaler 0 4 Active ibuprofen (ADVIL,MOTRIN) 600 MG tabletIndications :Ventral hernia Take 1 tablet (600 mg) by mouth every 6 hours as needed for pain (mild) 30 tablet 0 4 Active omeprazole 20 MG tabletIndications :Abdominal pain, epigastric Take 1 tablet (20 mg) by mouth daily Take 30-60 minutes before a meal. 30 tablet 1 5 Active irbesartan-hydroc hlorothiazide (AVALIDE) 150-12.5 MG per tabletIndications :Benign hypertension 2 tablets daily. 180 tablet 0 6 Active simvastatin (ZOCOR) 20 MG tabletIndications :Hyperlipidemia Take 1 tablet (20 mg) by mouth At Bedtime 90 tablet 0 6 Active cefuroxime (CEFTIN) 250 MG tabletIndications :Dysuria,Myalgia Take 1 tablet (250 mg) by mouth 2 times daily 20 tablet 7 Active Active Problems Problem Noted Date Diagnosed Date Lump or mass in breast 05/14/2015 DJD (degenerative joint disease) of knee 015 Major depressive disorder, single episode 2014 Overview (08/20/2015): Problem list name updated by automated process. Provider to review COPD (chronic obstructive pulmonary disease) 04/2012 Hyperlipidemia LDL goal <160 04/10/2012 Pain in joint, shoulder region 08/10/2010 HTN (hypertension) 06/16/2008 Overview (08/19/2012): (Problem list name updated by automated process. Provider to review and confirm.) Resolved Problems Problem Noted Date Diagnosed Date Resolved Date Advanced directives, counseling/discussion 10/17/2011 05/05/2024 Overview (10/17/2011): PT states she brought copies before 10/03/11 surgery. Hyperlipidemia LDL goal <130 09/18/2010 04/10/2012 Major depressive disorder, single episode 05/23/2010 11/06/2011 Overview (08/20/2015): Problem list name updated by automated process. Provider to review Other postprocedural status(V45.89) 11/05/2009 12/14/2009 Pain in joint, shoulder region 09/09/2009 12/14/2009 Hip pain 07/29/2009 09/01/2009 Other postprocedural status(V45.89) 07/29/2009 09/01/2009 Mixed hyperlipidemia 09/13/2006 014 Backache 06/30/2005 08/02/2005 Overview (08/19/2015): Problem list name updated by automated process. Provider to review iamSPINAL STENOSIS-LUMBAR 06/30/2005 Immunizations Immunization Administration Dates Next Due Influenza (IIV3) PF [...] School Help Needed Not on file 09/02 Comments No Sex and Gender Information Value Date Recorded Sex Assigned at Female 12/30/2023 11:49 AM INTERMODAL DISPATCHER Legal Sex Female 3:19 AM INTERMODAL DISPATCHER Gender Identity Female 12/30/2023 11:49 AM INTERMODAL DISPATCHER Sexual Orientation Choose not to disclose 2023 11:49 AM INTERMODAL DISPATCHER Last Filed Vital Signs Vital Sign Reading Time Taken Comments Blood Pressure 100/72 10/21/2017 2:15 PM INTERMODAL DISPATCHER Pulse 63 10/21/2017 2:15 PM INTERMODAL DISPATCHER Temperature 36.5 C (97.7 F) 10/21/2017 2:15 PM INTERMODAL DISPATCHER Respiratory Rate 16 05/17/2015 8:04 AM CDT Oxygen Saturation 97% 10/21/2017 2:15 PM INTERMODAL DISPATCHER Inhaled Oxygen Concentration - - Weight 90.7 kg (200 lb) 11/20/2015 9:29 AM INTERMODAL DISPATCHER Height 156.8 cm (5' 1.75) 11/20/2015 9:29 AM CS T Body Mass Index 36.88 11/20/2015 9:29 AM INTERMODAL DISPATCHER Plan of Treatment Not on file Medical Devices Implanted Type Area Moving Worker Device Identifier Shelf Expiration Date Model / Serial / Lot Imp Comp Shoulder Glenoid 5 [id number] Implanted:Qty : 1 on 10/03/2011 at [facility] Left: Shoulder [employer] 07/18/2016 [id number] / / [id number] Bone Cement Simplex Full Dose [id number] Implanted:Qty : 1 on 10/03/2011 at [facility] Left: Shoulder [employer] 08/18/2013 [id number] / / [id number] Imp Stem Humeral Strk 11mm [id number] Implanted:Qty : 1 on 10/03/2011 at [facility] Left: Shoulder [employer] 10/18/2015 [id number] / / [id number] Imp Head Humeral Strk [id number] Implanted:Qty : 1 on 10/03/2011 at [facility] Left: Shoulder [employer] 04/18/2016 [id number] / / [id number] Mesh Ventralex Hernia 2.5 [place] Med W/Strap [id number] Implanted:Qty : 1 on 04/02/2014 by Kiah Tamayo MD at [facility] N/A: Umbilical [employer]-DAVOL 02/06/2016 [id number] / / [id number] Care Teams Gin Pole Operator Relationship Specialty Start Date End Date Shanelle Reno MD PCP - General Family Practice 08/24/15
--- OUTSIDE RECORDS SUMMARY | 2025-04-08 15:20 | XMS_ITS | Encounter Summary ---
Author Organization [facility] Address [address] [place] [address] Care Team Providers Care Tso Name Role Phone Pipe Husain MD Primary Care Provider [phone] Billie Barnes RN Unavailable [phone] Karen Wise MD Primary Care Provider Un available Amina Rivera MD Primary Care Provider [phone] Shanelle Reno MD Primary Care Provider Shanelle Reno MD Unavailable [phone] Encounter Details Date Type Department Care Team (Late st Contact Info) Description 10/01/2012 [facility] Medical Advice [address] [phone] Pipe Husain MD [address] [place] [id number] Social History Tobacco Use Types Packs/Day Years Used Date Smoking Tobacco: Never Smokeless Tobacco: Never Alcohol Use Standard Drinks/Week Comments No 0 (1 standard drink = 0.6 oz pur e alcohol) Comments No Sex and Gender Information Value Date Recorded Sex Assigned at Female 12/30/2023 11:49 AM LASER/ELECTRO OPTICS TECHNICIAN Legal Sex Female 3:19 AM LASER/ELECTRO OPTICS TECHNICIAN Gender Identity Female 12/30/2023 11:49 AM LASER/ELECTRO OPTICS TECHNICIAN Sexual Orientation Choose not to disclose 2023 11:49 AM LASER/ELECTRO OPTICS TECHNICIAN documented as of this encounter Plan of Treatment Not on file documented as of this encounter Visit Diagnoses Not on filedocumented in this encounter Care Teams Tso Relationship Specialty [place] [address] [address] PCP - General 09/09/02 02/25/14 [place] [address] [address] [facility] [place] [address] PCP - General Internal Medicine 02/26/14 03/24/14 [place] [address] [address] [address] PCP - General Family Practice 03/25/14 08/23/15 [place] [address] [address] [facility] [place] [place] [address] PCP - General Family Practice 08/24/15 [place] [address] [address] [place] [address] PCP - Assigned PCP 11/28/15 11/23/18 Billie Barnes, MERNA [address] [employer] [facility] [place] [address] Consulting Practice Manager 11/05/13 01/16/19 documented as of this encounter
--- OUTSIDE RECORDS SUMMARY | 2025-04-08 15:20 | XMS_ITS | Encounter Summary ---
Author Organization [facility] Address [address] [place] [address] Care Team Providers Care Nail Sticker Name Role Phone Pipe Husain MD Primary Care Provider [phone] Billie Barnes RN Unavailable [phone] Karen Wise MD Primary Care Provider Un available Amina Rivera MD Primary Care Provider Shanelle Reno MD Primary Care Provider Shanelle Reno MD Unavailable [phone] Reason for Visit * Reason Onset Date Comments Refill Request 02/13/2013 Simvastatin 20mg Encounter Details Date Type Department Care Team (Late st Contact Info) Description 02/13/2013 Refill [facility] [id number] [place] [phone] [place] Hus[place] [id number] [place] [address] Refill Request (Simvastatin 20mg) Social History Tobacco Use Types Packs/Day Years Used Date Smoking Tobacco: Never Smokeless Tobacco: Never Alcohol Use Standard Drinks/Week Comments No 0 (1 standard drink = 0.6 oz pur e alcohol) Comments No Sex and Gender Information Value Date Recorded Sex Assigned at Female 12/30/2023 11:49 AM ROUSTABOUT CREW LEADER Legal Sex Female 3:19 AM ROUSTABOUT CREW LEADER Gender Identity Female 12/30/2023 11:49 AM ROUSTABOUT CREW LEADER Sexual Orientation Choose not to disclose 2023 11:49 AM ROUSTABOUT CREW LEADER documented as of this encounter Miscellaneous Notes [...] [place] 40 [place]. [place] [address] [place] d. Recheck in 8 weeks Anderson Rivera PharmD [facility] Pharmacist [facility] [phone] * Telephone Encounter - Jeremy Flores - 02/13/2013 9:44 AM CDT Last Fill Date: 11/06/2012 Last Fill Quantity: 90 Last Office Visit: 12/10/2012 CHOL 260 07/29/2012 HDL 51 07/29/2012 LDL 165 07/29/2012 TRIG 224 07/29/2012 CHOLHDLRATIO 5.1 07/29/2012 Jeremy Flores [facility] Chemist. [facility] documented in this encounter Plan of Treatment Not on file documented as of this encounter Visit Diagnoses Diagnosis Hyperlipidemia- Primary Other and unspecified hyperlipidemia documented in this encounter Care Teams Nail Sticker Relationship Specialty [place] [address] [place] [address] PCP - General 09/09/02 02/25/14 [place] [address] [place] [address] PCP - General Internal Medicine 02/26/14 03/24/14 [place] [address] [place] [address] PCP - General Family Practice 03/25/14 08/23/15 [place] [address] [place] [address] PCP - General Family Practice 08/24/15 [place] [address] [facility] [place] [address] PCP - Assigned PCP 11/28/15 11/23/18 [place] [address] [place] [address] Manager Council 11/05/13 01/16/19 documented as of this encounter
--- OUTSIDE RECORDS SUMMARY | 2025-04-08 15:20 | XMS_ITS | Clinical Summary ---
Author Organization [facility] Address [address] [place] [address] Care Team Providers Care Lawn Service Worker Name Role Phone GambleAlex hernandezlawrence Anderson LEGAL AIDE Primary Care Provider [phone] Allergies Active Allergy Reactions Criticality Noted Date Comments Ciprofloxacin Other - Describe In Comment Field 05/17/2015 Broken tendon Metformin Diarrhea 05/06/2019 Hydrocodone-Acetaminoph en Nightmares 05/06/2019 Oxycodone Other - Describe In Comment Field 10/17/2011 Hallucinations with oxycontin but can take oxycodone Tetracycline Edema 05/01/2003 Minocin - feet swelled Medications simvastatin (ZOCOR) 20 mg tablet Take 1 tablet by mouth once daily. 3 02/24/2019 Active irbesartan-hydr ochlorothiazide (AVALIDE) 150-12.5 mg tablet Take 2 tablets by mouth once daily. 3 02/24/2019 Active albuterol HFA (PROVENTIL HFA) 90 mcg/actuation inhaler Inhale 2 Puffs by mouth every 6 hours if needed. 11/25/2013 Active aspirin-calcium carbonate 81 mg-300 mg calcium(777 mg) tab Take 1 Tab by mouth once daily. Active calcium carbonate-vadim calciferol, 600mg-200 units, (CALTRATE-600 + VIT D) tablet Take 1 Tab by mouth once daily with a meal. Active potassium chloride (MICRO-K) 10 mEq Controlled-rele ase capsule Take 10 mEq by mouth once [...] and Fami ly Not on file 07/05/2023 Comments Unknown Sex and Gender Information Value Date Recorded Sex Assigned at Not on file Legal Sex Female 3:17 PM CDT Gender Identity Not on file Sexual Orientation [...] for age 18+ 1954 Tetanus booster 1956 Pneumococcal series for age 50+ (1 of 1 - PCV) 1986 Zoster (shingles) series for age 50+ (1 of 2) 1986 DEXA/DXA scan for age 65+ 2001 Medicare Wellness for age 65+ 2001 RSV vaccine for adults or (1 - 1-dose 75+ series) 2011 COVID-19 vaccine series ( season) 2024 08/22/2022, 04/04/2022, 08/30/2021, Additional history exists Influenza Vaccine (Season Ended) 2025 Insurance [employer] MEDICARE ADVANTAGE MR Care Teams Lawn Service Worker Relationship Specialty Start Date End Date Kylah Gamble LEGAL AIDE [address] [place] [address] PCP - General Emergency Medicine 07/05/23
--- OUTSIDE RECORDS SUMMARY | 2025-04-08 15:20 | XMS_ITS | Encounter Summary ---
Author Organization [facility] Address [address] [place] [address]. [place] [address] Care Team Providers Care Television Installer Helper Name Role Phone Pipe Husain MD Primary Care Provider [phone] Billie Barnes RN Unavailable [phone] Karen Wise MD Primary Care Provider Un available Amina Rivera MD Primary Care Provider [phone] Shanelle Reno MD Primary Care Provider Shanelle Reno MD Unavailable [phone] Reason for Visit * Reason Onset Date Comments Refill Request 09/30/2013 irma peck Encounter Details Date Type Department Care Team (Late Contact [facility]) Description 09/30/2013 MyC Refill [address] [phone] Pipe Husain MD [address] [place] [address] Refill Request (irma peck) Social History Tobacco Use Types Packs/Day Years Used Date Smoking Tobacco: Never Smokeless Tobacco: Never Alcohol Use Standard Drinks/Week Comments No 0 (1 standard drink = 0.6 oz pur e alcohol) Comments No Sex and Gender Information Value Date Recorded Sex Assigned at Female 12/30/2023 11:49 AM DIP TUBE ASSEMBLER MACHINE Legal Sex Female 3:19 AM DIP TUBE ASSEMBLER MACHINE Gender Identity Female 12/30/2023 11:49 AM DIP TUBE ASSEMBLER MACHINE Sexual Orientation Choose not to disclose 2023 11:49 AM DIP TUBE ASSEMBLER MACHINE documented as of this encounter Miscellaneous Notes * Telephone Encounter - Shoshana Barreto RN - 09/30/2013 2:41 PM CST Last office visit: [id number] Reason for visit: pre-op Recent Labs Lab [...] LABS [facility] MESSAGE SENT Shoshana Barreto RN TUBE ASSEMBLER MACHINE * Telephone Encounter - Shoshana Barreto RN - 09/30/2013 2:40 [facility] Original authorizing provider: Pipe Husain MD, MD Kaiasusana Estrella would like a refill of the following medications: irbesartan-hydrochlorothiazide (AVALIDE) 150-12.5 MG per tablet [Pipe Husain MD, MD] simvastatin (ZOCOR) 20 MG tablet [Pipe Husain MD, MD] Preferred pharmacy: [facility] [address] [facility] Comment: TUBE ASSEMBLER MACHINE documented in this encounter Plan of Treatment Not on file documented as of this encounter Visit Diagnoses Diagnosis Benign hypertension Essential hypertension, benign Hyperlipidemia Other and unspecified hyperlipidemia documented in this encounter Care Teams Television Installer Helper Relationship Specialty [place] [address] [place] [address] PCP - General 09/09/02 02/25/14 [place] [address] [facility] [place] [address] PCP - General Internal Medicine 02/26/14 03/24/14 [place] [address] [place] [address] PCP - General Family Practice 03/25/14 08/23/15 [place] [address] [place] [address] PCP - General Family Practice 08/24/15 [place] [address] [place] [address] PCP - Assigned PCP 11/28/15 11/23/18 Billie Barnes, MERNA [address] [facility] [place] [address] Casino Floorperson 11/05/13 01/16/19 documented as of this encounter
--- OUTSIDE RECORDS SUMMARY | 2025-04-08 15:20 | XMS_ITS | Clinical Summary ---
Author Organization [facility] Address [address] [place] [address] Care Team Providers Care Port Patrol Officer Name Role Phone None Reported, Pcp Primary Care Provider Unavail able Source Comments Patient records contain information from all sites at [facility]. For routine questions regarding patient records, call [phone] during business hours, M-F 8:00 AM - 5:00 PM Central Time. Record requests for emergency care only can be directed to [phone] at any time.[facility] Allergies Active Allergy Reactions Criticality Noted Date Comments Amoxicillin-Pot Clavulanate GI intolerance High 08/12/2009 Severe diarrhea - c.diff Ciprofloxacin Tendonitis High 05/17/2015 Broken tendon Hydrocodone-Acetaminop hen Other (see comments) High 05/06/2019 Per patient on 02/18/24, she experiences nightmares Metformin GI intolerance Medium 05/06/2019 Diarrhea Tetracycline Angioedema High 05/01/2003 Minocin - feet swelled Medications simvastatin (ZOCOR) 20 mg tablet Take 20 mg by mouth at bedtime. Active irbesartan-hydr oCHLOROthiazide (AVALIDE) 150-12.5 mg per tablet Take 2 tablets by mouth daily. Active glimepiride (AMARYL) 4 mg tablet Take 4 mg by mouth 2 (two) times a day. Active potassium chloride (KLOR-CON SPRINKLE) 10 mEq ER sprinkle capsule Take 10 mEq by mouth daily. Active calcium carbonate-vitam in D3 1,500 mg (600 mg calcium)-5 mcg (200 Unit) per tablet Take 1 tablet by mouth every other day. Active multivitamin-mi afguwb-DM-ikhdx joy-lutein (Centrum Silver) 0.4 mg-300 mcg- 250 mcg tablet Take 1 tablet by mouth daily. Active UNABLE TO FIND Apply 1 each topically once a week. On Sundays, Med Name: fluorouracil cream Active aspirin [address] tablet Take 1 tablet (81 mg total) by mouth 2 (two) times a day. 120 tablet 4 Active sennosides-docu sate sodium (SENOKOT-S) 8.6-50 mg per tablet Take 1 tablet by mouth 2 (two) times a day. 100 tablet 4 Active acetaminophen (TYLENOL) 500 mg tablet Take 2 tablets (1,000 mg total) by mouth every 6 (six) hours. 100 tablet 4 Active apixaban (ELIQUIS) 5 mg tablet Take 2 tablets (10 mg total) by mouth 2 (two) times a day for 7 days. 28 tablet 4 Active oxyCODONE (ROXICODONE) 5 mg immediate release tabletIndicatio ns:Prolonged Acute Pain/Traumatic Injury Take 1 tablet (5 mg total) by mouth every 4 (four) hours as needed for pain Indication: Prolonged Acute Pain/Traumatic Injury. 30 tablet 4 Active Additional Information Patient not taking.Reported on 05/06/2024 celecoxib (CeleBREX) 200 mg capsule take one capsule by mouth every day 30 capsule 4 Active oxyCODONE (Roxicodone) 5 mg immediate release tabletIndicatio ns:Prolonged Acute Pain/Traumatic Injury Take 1 tablet (5 mg total) by mouth every 4 (four) hours as needed for pain Indication: Prolonged Acute Pain/Traumatic Injury. 25 tablet 02/06/2025 11:57 AM CDT 5 Active Active Problems Problem Noted Date Diagnosed Date Pain Elbow Right 05/06/2024 Hypertension Essential Primary 02/22/2024 Diabetes Mellitus Type 2 Without Complication Primary Osteoarthritis Knee Right 12/20/2023 Major Depressive Disorder Single Episode Unspeci fied 05/14/2015 Overview (01/26/2025): Problem list name updated by automated process. Provider to review Chronic Obstructive Pulmonary Disease 09/24/2012 Hyperlipidemia 04/10/2012 Encounters Date Type Department Care Team Description 02/24/2025 10:00 AM CDT Office Visit Department of Orthopedic Surgery in [address] [address] Erlinda March APRN, C.N.P., D.N.P. Follow Up Examination Postoperative Visit (Primary Dx) Discharge Disposition: Home or Self Care 02/06/2025 8:00 AM CDT - 02/06/2025 10:06 AM CDT Surgery Outpatient Procedure Center in [address] [address] Michael Díaz M.D. ARTHROSCOPY ELBOW, spur excision, posterior arthrotomy 02/06/2025 7:57 AM CDT Anesthesia Event Outpatient Procedure Center in [address] [address] Tracy Bourgeois APRN, NIB INSPECTOR 02/06/2025 6:37 AM CDT - 02/06/2025 11:40 AM CDT Hospital Encounter Outpatient Procedure Center in [address] [address] Michael Díaz M.D. Discharge Disposition: Home or Self Care 02/06/2025 4:50 AM CDT Ancillary Procedure Department of General Surgery 02/03/2025 Nurse Triage Division of [facility] Internal Medicine, [facility] in [place] [address] [address] [place] [address] Ernestina Stanley R.N. Medical Information 01/27/2025 1:30 PM CDT Virtual Visit Preoperative Evaluation Center in [address] [id number] Michael Díaz M.D. Dosdall, Alaina N, R.NChristiana Preanesthetic Medical Exam (Primary Dx); Pain Elbow Right Discharge Disposition: Home or Self Care from Last 3 Months Family History Medical History Relation Name Comments Anesthesia problems Sister Anisa Delayed emergence Relation Name Status Comments Sister Anisa Social History Tobacco Use Types Packs/Day Years Used Date Smoking Tobacco: Never Smokeless Tobacco: Never Tobacco Cessation:Counseling Given: Not Answered Alcohol Use Standard Drinks/Week Comments Not Currently 0 (1 standard drink = 0.6 oz pur e alcohol) [facility] Utilities Answer Date Recorded In the past 12 months has th e [employer], gas, oil, or water [employer] threatened to shut off services in your [...] your living situation today? 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 Gender Identity Female 02/17/2024 7:52 PM CDT Sexual Orientation Straight 02/17/2024 7: 52 PM CDT Last Filed Vital Signs Vital Sign Reading Time Taken Comments Blood Pressure 133/47 02/06/2025 11:27 AM CDT Pulse 53 02/06/2025 11:27 AM CDT Temperature 36 C (96.8 F) 02/06/2025 11:00 AM CDT Respiratory Rate 19 02/06/2025 11:27 AM CDT Oxygen Saturation 100% 02/06/2025 11:27 AM CDT Inhaled Oxygen Concentration - - Weight 88 kg (194 lb 0.1 oz) 03/11/2024 6:38 PM CDT Height 154.9 cm (5' 0.98) 02/06/2025 7:07 AM CD T Body Mass Index 36.66 02/27/2024 11:57 AM CDT Plan of Treatment Health Maintenance Due Date Last Done Comments Depression Monitoring (PHQ-9) 1936 Diabetic Office Visit with Foot Exam 1936 Dilated Eye Exam 1936 Hemoglobin A1C 1936 Urine Albumin 1936 Hepatitis B Vaccines (1 of 3 - Risk 3-dose series) 1996 DTaP,Tdap,and Td Vaccines (1 - Tdap) 05/20/2019 05/19/2019, 05/20/2009 COVID-19 Vaccine ( season) 2024 09/25/2023, 08/22/2022, 04/04/2022, Additional history exists Depression Monitoring (PHQ-9 for quality tracking) 11/19/2024 Creatinine Level (Kidney Function Test) 03/11/2025 03/11/2024, 03/06/2024 Potassium Level 03/11/2025 03/11/2024, 03/06/2024 Sodium Level 03/11/2025 03/11/2024, 03/06/2024 Pneumococcal vaccine (50+ years) Completed 08/19/2019, 05/04/2016, 07/31/2012, Additional history exists Zoster Vaccines Completed 09/21/2020, 06/08/2020 RSV vaccine - (32-36 weeks) or 60+ years Completed 11/21/2023 Influenza Vaccine Completed 07/31/2024, , 08/22/2022, Additional history exists Fall Risk Screen (Annual) Completed 02/06/2025 IPV Vaccines Aged Out No longer eligi ble based on patient's age to complete this topic Medical Devices Implanted Type Area Powder Nipper Device Identifier Shelf Expiration Date Model / Serial / Lot Kn Fem Trt Rt Pors Sz-5 - [id number] Implanted:Qty: 1 on 02/27/2024 by Michael Díaz M.D. at [facility] Knee Implant Right: Knee [place] 12/31/2028 5516-F-[id number] / / [id number] Bsplt Tib Trt Sz4 - [id number] Implanted:Qty: 1 on 02/27/2024 by [place] Díaz M.D. at [facility] Knee Implant Right: Knee [employer] 11/29/2028 5536-B-[id number] / / [id number] Ins Tib Trt Ps X3 Sz4 11 - [id number] Implanted:Qty: 1 on 02/27/2024 by Michael Díaz M.D. at [facility] Knee Implant Right: Knee [employer] 12/02/2028 5532-G-[id number] -E / / [id number] Pat Trt Sym Mtl 10x36 - [id number] - [id number] Implanted:Qty: 1 on 02/27/2024 by Michael Díaz M.D. at [facility] Knee Implant Right: Knee [place] 08/26/2028 [id number]-L-[id number] / [id number] 0 / [id number] Procedures Procedure Name Priority Date/Time Associated Diagnosis Comments LDA ANE NON-SURGICAL AIRWAY Routine 02/06/2025 8:04 AM CDT ARTHROSCOPY ELBOW 02/06/2025 7:5 6 AM CDT Pain Elbow Right SURGERY IMAGE EXAM Routine 02/06/2025 4: 50 AM CDT BASIC METABOLIC PANEL, S/P STAT 03/11/2024 6:49 PM CDT from Last 3 Months or Most Recently Relevant to Health Maintenance Results * LDA ANE NON-SURGICAL AIRWAY (02/06/2025 8:04 AM CDT) Narrative Tracy Bourgeois APRN, CRNA - 02/06/2025 8:04 AM CDT Tracy Bourgeois APRN, CRNA 02/06/2025 8:39 AM Airway Date/Time: 02/06/2025 8:04 AM Performed by: Tracy Bourgeois APRN, CRNA Authorized by: Tracy Bourgeois APRN, CRNA Patient location during procedure: OR / Procedure Area PROCEDURE DETAILS: Mask difficulty assessment: not attempted Final airway type: supraglottic airway FIERRO Airway Device Size: 3.5. Number of attempt to successful placement: 1 Supraglottic device: air-Q FIERRO Airway Device Size: 3.5. Airway confirmation: bilateral breath sounds, positive ETCO2 and bilateral chest rise Other previous techniques attempted: none PRE PROCEDURE DETAILS: Pre evaluation for airway management: procedure Urgency: elective Preoxygenation: bag valve mask SEDATION / ANESTHESIA Anesthesia method: anesthesia POST PROCEDURE DETAILS: Procedure outcome: successful us Tracy Bourgeois APRN, CRNA ANESTHESIA ORDERABLES Fi nal Result * ELBOW-Surgery Image Exam (02/06/2025 4:50 AM CDT) Narrative [facility] - 02/06/2025 9:21 AM CDT This order has been created and auto-finalized to support the import of images acquired without order. The clinical documentation to support these images can be found on the encounter that produced images. us Provider Not In System IMG NON RAD IMAGING PROCE DURES Final Result [facility] NA * (ABNORMAL) Basic Metabolic Panel (03/11/2024 6:49 [...] 6:49 PM CDT 03/11/2024 6:53 PM CDT us Pan Zelaya P.A.-C. 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 Expl anation Advance Directives 03/26/2024 10:34 AM BODY /ORGAN DONATION Advance Directives 03/25/2024 6:57 AM Ailyn roberson HCPOA/ADVOCATE/AGENT/REP RESENTATIVE/SURROGATE * Full Code (Latest Code Status on File) Date Activated Date Inactivated Comments 02/27/2024 12:04 PM 02/28/2024 2:08 PM Question Answer Comments Full Code: Not Discussed Due to: Patient not available Healthcare Agents on File Name Relationship Healthcare Agent Relationshi p Communication Aiyln Estrella Daughter Health Care Agent [phone] (Home) [email or web address] Ari Sameer Son First Alternate Health Care Agent Care Teams Port Patrol Officer Relationship Specialty Start Date End Date None Reported, Pcp PCP - General Family Medicine 02/27/24
--- OUTSIDE RECORDS SUMMARY | 2025-04-08 15:20 | XMS_ITS | Encounter Summary ---
Author Organization [facility] Address [address] [place] [address] Care Team Providers Care Naturopath Name Role Phone Billie Barnes RN Unavailable [phone] Shanelle Reno MD Primary Care Provider Shanelle Reno MD Unavailable [phone] Encounter Details Date Type Department Care Team (Late st Contact Info) Description 08/30/2015 My[facility] Medical Advice [address], [address] [address] Fabby Nguyen Social History Tobacco Use Types Packs/Day Years Used Date Smoking Tobacco: Never Smokeless Tobacco: Never Alcohol Use Standard Drinks/Week Comments Yes 0 (1 standard drink = 0.6 oz pur e alcohol) OCC Comments No Sex and Gender Information Value Date Recorded Sex Assigned at Female 12/30/2023 11:49 AM SWATCH FOLDER Legal Sex Female 3:19 AM SWATCH FOLDER Gender Identity Female 12/30/2023 11:49 AM SWATCH FOLDER Sexual Orientation Choose not to disclose 2023 11:49 AM SWATCH FOLDER documented as of this encounter Plan of Treatment Not on file documented as of this encounter Visit Diagnoses Not on filedocumented in this encounter Care Teams Naturopath Relationship Specialty Start Date End Date Shanelle Reno MD PCP - General Family Practice 08/24/15 [place] [address] [address] [place] [address] PCP - Assigned PCP 11/28/15 11/23/18 Billie Barnes RN Perioperative Assistant 11/05/13 01/16/19 documented as of this encounter
--- OUTSIDE RECORDS SUMMARY | 2025-04-08 15:20 | XMS_ITS | Encounter Summary ---
Author Organization [facility] Address [address] [place] [address] Care Team Providers Care Seam Stay Stitcher Name Role Phone Billie Barnes RN Unavailable [phone] Karen Wise MD Primary Care Provider Un available Amina Rivera MD Primary Care Provider [phone] Shanelle Reno MD Primary Care Provider Shanelle Reno MD Unavailable [phone] Encounter Details Date Type Department Care Team (Late st Contact Info) Description 03/12/2014 MyC Medical Advice Initial Department [facility] Social History Tobacco Use Types Packs/Day Years Used Date Smoking Tobacco: Never Smokeless Tobacco: Never Alcohol Use Standard Drinks/Week Comments No 0 (1 standard drink = 0.6 oz pur e alcohol) Comments No Sex and Gender Information Value Date Recorded Sex Assigned at Female 12/30/2023 11:49 AM FIRE ENGINEER Legal Sex Female 3:19 AM FIRE ENGINEER Gender Identity Female 12/30/2023 11:49 AM FIRE ENGINEER Sexual Orientation Choose not to disclose 2023 11:49 AM FIRE ENGINEER documented as of this encounter Plan of Treatment Not on file documented as of this encounter Visit Diagnoses Not on filedocumented in this encounter Care Teams Seam Stay Stitcher Relationship Specialty Start Date End Date Karen Wise MD PCP - General Internal Medicine 02/26/14 03/24/14 [place] [address] [place] [address] PCP - General Family Practice 03/25/14 08/23/15 [place] [address] [place] [address] PCP - General Family Practice 08/24/15 [place] [address] [address] [facility] [place] [address] PCP - Assigned PCP 11/28/15 11/23/18 Billie Barnes RN Document Management Technician 11/05/13 01/16/19 documented as of this encounter
--- OUTSIDE RECORDS SUMMARY | 2025-04-08 15:20 | XMS_ITS | Encounter Summary ---
Author Organization [facility] Address [address] [place] [address] Care Team Providers Care Stitching Machine Feeder Or Offbearer Name Role Phone Pipe Husain MD Primary Care Provider Billie Barnes RN Unavailable [phone] Karen Wise MD Primary Care Provider Un available Amina Rivera MD Primary Care Provider [phone] Shanelle Reno MD Primary Care Provider Shanelle Reno MD Unavailable [phone] Encounter Details Date Type Department Care Team (Late st Contact Info) Description 03/20/2013 Telephone [facility] [address] [facility], [address] [place] [address] [place] [address] [place], [place] [id number] Social History Tobacco Use Types Packs/Day Years Used Date Smoking Tobacco: Never Smokeless Tobacco: Never Alcohol Use Standard Drinks/Week Comments No 0 (1 standard drink = 0.6 oz pur e alcohol) Adolescent Education Answer Date Record ed Getting School Help Needed Not on file 09/02 Comments No Sex and Gender Information Value Date Recorded Sex Assigned at Female 12/30/2023 11:49 AM DIVERSIFIED 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 Chastity Lenz RN Nurse Navigator [facility] documented in this encounter Plan of Treatment Not on file documented as of this encounter Visit Diagnoses Not on filedocumented in this encounter Care Teams Stitching Machine Feeder Or Offbearer Relationship Specialty [place] [address] [place] [address] PCP - General 09/09/02 02/25/14 [place] [address] [place] [address] PCP - General Internal Medicine 02/26/14 03/24/14 [place] [address] [place] [address] PCP - General Family Practice 03/25/14 08/23/15 [place] [address] [place] [address] PCP - General Family Practice 08/24/15 [place] [address] [facility] [place] [address] PCP - Assigned PCP 11/28/15 11/23/18 Billie Barnes, MERNA [address] [place] [address] Adjunct Philosophy Faculty 11/05/13 01/16/19 documented as of this encounter
[2025-04-08 15:21] LABS: NT Pro B Type NatriureticPept* 232 pg/mL; Troponin I* < 0.01 ng/mL (0.01-0.04)
[2025-04-08 15:29] LABS: PCR FLU A Negative PCR FLU A (Negative); PCR FLU B Negative PCR FLU B (Negative); PCR RSV Negative PCR RSV (Negative); SARS PCR* Negative SARS-CoV-2 (Negative)
== END 2025-04-08 16:56 | disposition home or self-care (01) ==
PROVIDERS: Emergency Provider Student in an Organized Health Care Education/Training Program; PCP Nurse Practitioner Family
DX: E86.0 Dehydration (principal); R06.02 Shortness of breath; R42 Dizziness and giddiness; I45.10 Unspecified right bundle-branch block
CPT/HCPCS: 36415; 71275; 80048; 82565; 83735; 83880; 84484; 85025; 87631; 99284; 99285; J7120; Q9967

== ENCOUNTER 2025-06-19 13:15 | Outpatient (CLI) | payer MEDICARE, SELFPAY | END 2025-06-19 13:16 | disposition home or self-care (01) | PROVIDERS: PCP Nurse Practitioner Family; Visit Provider Nurse Practitioner Family | DX: I10 Essential (primary) hypertension (principal); E11.9 Type 2 diabetes mellitus without complications; E78.5 Hyperlipidemia, unspecified; E66.01 Morbid (severe) obesity due to excess calories; M81.0 Age-related osteoporosis without current pathological fracture; R20.2 Paresthesia of skin; M25.50 Pain in unspecified joint; Z51.81 Encounter for therapeutic drug level monitoring | CPT/HCPCS: 80048; 82607; 85651; 86038; 86140 ==